=== PATIENT | male | born 1985 | race Caucasian/White ===

== ENCOUNTER → 2020-06-20 | Outpatient (CLI) | payer BC, SELFPAY ==
[2020-06-20 13:42] VITALS: BMI 26.7
== END | disposition home or self-care (01) ==
PROVIDERS: Referring Provider Physician Assistant Surgical; Visit Provider Physician Assistant Surgical
DX: U07.1 COVID-19 (principal)
CPT/HCPCS: 87635; U0003

== ENCOUNTER → 2022-10-11 | Outpatient (CLI) | payer BC, SELFPAY ==
[2022-10-11 10:10] LABS: ALB/GLOB Ratio 1.2 RATIO (0.9-2.4); AST(SGOT) 26 U/L (15-37); Alanine Aminotransfer ALT/SGPT 43 U/L (16-61); Alkaline Phosphatase 53 U/L (45-117); Anion Gap 5 (5-15); BUN 12 mg/dL (7-18); BUN/Creat Ratio 11.2 RATIO (10-20); Calcium,Total 8.9 mg/dL (8.5-10.1); Chloride 105 mmol/L (98-107); Cholesterol 135 mg/dL (200); Creatinine, Serum 1.07 mg/dL (0.70-1.30); EST Glomerular Filtration Rate 82 mL/min (>60); Est Glom Filt Rate - Afr Amer 100 mL/min (>60); Globulin 3.3 g/dL (2.2-4.2); Glucose 92 mg/dL (74-106); High Density Lipoprotein 41 mg/dL; Potassium 3.7 mmol/L (3.5-5.1); Protein, Total 7.3 g/dL (6.4-8.2); Sodium Level 140 mmol/L (136-145); Triglycerides 99 mg/dL; Very Low Density Lipoprotein 20 mg/dL (5-40)
[2022-10-11 10:27] LABS: Hemoglobin A1c 5.2 % (3.8-5.6)
== END | disposition home or self-care (01) ==
LOC: MTLAB 07:02
PROVIDERS: PCP Nurse Practitioner Family; Referring Provider Nurse Practitioner Family; Visit Provider Nurse Practitioner Family
DX: Z00.00 Encounter for general adult medical examination without abnormal findings (principal); Z13.1 Encounter for screening for diabetes mellitus; Z13.6 Encounter for screening for cardiovascular disorders
CPT/HCPCS: 36415; 80053; 80061; 83036

== ENCOUNTER → 2023-06-19 | Outpatient (CLI) | payer BC, SELFPAY ==
--- NOTE | 2023-06-19 08:55 | RAD_ITS ---
STUDY: X-RAY CHEST REASON FOR EXAM: Male, 38 years old. Cough. TECHNIQUE: Frontal and lateral views of the chest. COMPARISON: None. FINDINGS: Mild hyperinflation. There is no demonstrated pleural abnormality. Normal size heart. Normal mediastinum and jonathon. Normal visualized pulmonary arteries. Normal visualized aortic arch and descending thoracic aorta. Normal visualized thoracic spine. Normal visualized ribs, clavicles, and shoulders. No abnormality of the visualized soft tissue structures of the upper abdomen. RAD/Chest PA and Lateral IMPRESSION: Mild hyperinflation with no acute or active cardiopulmonary disease Electronically Signed: Iker Fierro MD at 9:28 EST ,
[2023-06-19 09:56] LABS: Hematocrit 44.6 % (40-54); Hemoglobin 14.1 g/dL (13.0-16.5); Mean Corp Hgb Conc 31.6 g/dL (32-36); Mean Corpuscular Hgb 25.9 pg (27.0-32.0); Mean Corpuscular Volume 81.8 fL (80-94); Mean Platelet Vol. 10.5 fl (6.2-12.0); Platelet Count 250 K/mm3 (150-450); RBC Distribution Width CV 13.1 % (11.6-14.6); RBC Distribution Width SD 38.7 fl (35.1-43.9); Red Blood Count 5.45 M/mm3 (4.6-6.2); White Blood Count 8.8 K/mm3 (4.4-11.0)
[2023-06-19 10:26] LABS: ALB/GLOB Ratio 1.2 RATIO (0.9-2.4); AST(SGOT) 18 U/L (15-37); Alanine Aminotransfer ALT/SGPT 31 U/L (16-61); Albumin, Serum 4.2 g/dL (3.2-5.0); Alkaline Phosphatase 59 U/L (45-117); Anion Gap 6 (5-15); BUN 12 mg/dL (7-18); BUN/Creat Ratio 9.8 RATIO (10-20); CRP < 2.90 mg/L (0.0-3.0); Calcium,Total 8.9 mg/dL (8.5-10.1); Chloride 106 mmol/L (98-107); Creatinine, Serum 1.23 mg/dL (0.70-1.30); EST Glomerular Filtration Rate 70 mL/min (>60); Est Glom Filt Rate - Afr Amer 85 mL/min (>60); Globulin 3.6 g/dL (2.2-4.2); Glucose 91 mg/dL (74-106); Potassium 3.5 mmol/L (3.5-5.1); Protein, Total 7.8 g/dL (6.4-8.2); Sodium Level 141 mmol/L (136-145)
== END | disposition home or self-care (01) ==
LOC: RAD 08:51
PROVIDERS: PCP Nurse Practitioner Family; Referring Provider Nurse Practitioner Family; Visit Provider Nurse Practitioner Family
DX: R06.09 Other forms of dyspnea (principal); J20.9 Acute bronchitis, unspecified
CPT/HCPCS: 36415; 71046; 80053; 85027; 86140

== ENCOUNTER 2025-03-08 12:37 | Emergency (ER) | payer OTHER, SELFPAY ==
[2025-03-08 12:38] VITALS: BP 150/89; PULSE 72; RESP 16; TEMP 36.6; O2SAT 100; BMI 28.7
--- OUTSIDE RECORDS SUMMARY | 2025-03-08 13:07 | XMS RPT_ITS | CCD ---
Author Organization [facility] Care Team Providers Care Dispensary Technician Name Role Phone Cristopher Larose CNP Primary Care Provider Lachelle PRODUCTION HONING MACHINE OPERATOR, Cristopher Mcadams Primary Care Unav ailable Lachelle PRODUCTION HONING MACHINE OPERATOR, Cristopher Mcadams Referring Unav ailable Chilton PRODUCTION HONING MACHINE OPERATOR, Cristopher Mcadams Attending Unav ailable [place] PRODUCTION HONING MACHINE OPERATOR, Cristopher Mcadams Referring Unav ailable [place] PRODUCTION HONING MACHINE OPERATOR, Cristopher Mcadams Attending Unav ailable Lachelle PRODUCTION HONING MACHINE OPERATOR, Cristopher Mcadams Primary Care Unav ailable Cristopher Larose CNP Primary Care Provider 1( [phone] CRISTOPHER LAROSE Primary Care Unavailable CRISTOPHER LAROSE Primary Care Unavailable CRISTOPHER LAROSE Primary Care Unavailable CRISTOPHER LAROSE Primary Care Unavailable Allergies Allergy Classification Reported Allergen(s) Allergy Type Date of Onset Reaction(s) Facility (8 sources) Amoxicillin; Translations: [AMOXICILLIN] Drug Allergy 03-08-20 [facility] Work Phone: (8 sources) Amoxicillin / Clavulanate; Translations: [AMOXICILLIN-POT CLAVULANATE] Drug Allergy 03-08-20 [facility] Work Phone: (10 sources) Cefaclor; Translations: [CEFACLOR] Drug Allergy 03-08-20 [facility] Work Phone: (3 sources) Penicillins; Translations: [PENICILLINS] Propensity to adverse reactions 03-08-20 [facility] Work Phone: (3 sources) septrum [Other] Propensity to adverse reactions 03-08-20 [facility] Work Phone: (5 sources) Penicillins Propensity to adverse reactions 03-08-20 06 [facility] Work Phone: (3 sources) Amoxicillin; Translations: [amoxicillin trihydrate] Drug Allergy 06-20-20 [facility] (2 sources) Clarithromycin Drug Allergy 06-20-20 [facility] (2 sources) Penicillins Allergy to substance 06-20-20 [facility] (2 sources) Sulfamethoxazole Drug Allergy 06-20-20 [facility] (2 sources) Trimethoprim Drug Allergy 06-20-20 [facility] (3 sources) potassium clavulanate; Translations: [potassium clavulanate] Allergy to substance 06-20-20 [facility] (1 source) Cefaclor Drug Allergy 06-20-20 [facility] (1 source) Clarithromycin Drug Allergy 06-20-20 [facility] (1 source) Penicillins Drug allergy (disorder) 06-20-20 [facility] (1 source) Sulfamethoxazole Drug Allergy 06-20-20 [facility] (1 source) Trimethoprim Drug Allergy 06-20-20 [facility] (5 sources) Adult Allergy; Translations: [ADULT ALLERGY] Propensity to adverse reactions to drug 11-29-19 Other: See Comments [facility] (1 source) OTHER; Translations: [OTHER] Propensity to adverse reactions (disorder) 03-08-20 [facility] Medications Current Medications Medication Drug Class(es) Dates Sig (Normalized) Sig (Original) Kril-Nkt-Bot-Supriya-Ps yl-Kelp-Pec (2 sources) Start: 04-20-2016 take 2000 mg by mouth once daily Azrs-Zim-Jqc-Supriya-P zsd-Raqp-Rwf Active 2000 MG PO DAILY April 19, 2016 11:00pm Start: 04-20-2016 take 2000 mg by mout h once daily Cboh-Qoq-Opu-Uag-Mzxh-Jrmj-Pec Active 20 00 MG PO DAILY April 20, 2016 12:00am cephalexin 500 mg oral capsule (2 sources) Cephalosporin Antibacterial Start: 11-29-2023 End: 12-09-2023 take 1 capsule by mouth twice daily cephALEXin (KEFLEX) 500 mg capsule Take 1 capsule by mouth two times a day for 10 days. 20 capsule 0 11/29/2023 12/09/2023 Active Start: 09-16-2022 End: 09-16-2022 take 1 capsule by mouth twice daily cephALEXin (KEFLEX) 500 mg capsule Take 1 capsule by mouth twice daily for 7 days. 14 capsule 0 09/16/2022 09/16/2022 Discontinued (Changing Therapy/Dosage Form) Comment on above: Take 1 capsule by [facility] twice daily for 7 days. doxycycline monohydrate 100 mg oral tablet (1 source) Tetracycline-class Drug Start: 07-13-20 End: 07-20-20 take 1 tablet by mouth twice daily doxycycline monohydrate 100 mg tablet Take 1 tablet by mouth twice daily for 7 days. 14 tablet 0 07/13/2022 07/20/2022 Active Comment on above: Take 1 tablet by [facility] twice daily for 7 days. fexofenadine (1 source) Histamine-1 Receptor Antagonist FEXOFENADINE 60 MG CAP Active oseltamivir 75 mg oral capsule (1 source) Neuraminidase Inhibitor Start: 08-14-19 End: 08-19-19 take 1 capsule by mouth twice daily oseltamivir (TAMIFLU) 75 mg capsule Indications: Influenza A Take 1 capsule by mouth two times a day for 5 days. 10 capsule 08/14/2024 08/19/2024 Active predniSONE 20 mg oral tablet (1 source) Start: 07-13-20 End: 07-18-20 take 2 tablets by mouth once daily predniSONE (DELTASONE) 20 mg tablet Take 2 tablets by mouth once daily for 5 days. 10 tablet 0 07/13/2022 07/18/2022 Active Comment on above: Take 2 tablets by [facility] once daily for 5 days. Completed/Discontinued Medications Medication Drug Class(es) Dates Sig (Normalized) Sig (Original) acetaminophen 325 mg / oxyCODONE hydrochloride 10 mg oral tablet (2 sources) Opioid Agonist Start: 04-20-2016 End: 06-20-2020 take 1 tablet by mouth every six hours as needed Oxycodone-Acetamin ophen Discontinued 1 TABLET PO EVERY 6 HOURS NEEDED April 19, 2016 11:00pm June 20, 2020 1:43pm [id number] 200 actuat albuterol 0.09 mg/actuat metered dose inhaler (6 sources) beta2-Adrenergic Agonist Start: 12-14-2018 End: 08-14-2024 take 2 puff(s) by inhalation every four hours as needed for wheezing albuterol HFA (PROVENTIL HFA, VENTOLIN HFA) 90 mcg/actuation inhaler Indications: Bronchitis Inhale 2 Puffs as instructed every 4 hours as needed for Wheezing/Shortness of Breath. 1 Inhaler 12/14/2018 08/14/2024 Discontinued Comment on above: Inhale 2 Puffs as in structed every 4 hours as needed for Wheezing/Shortness of Breath. aspirin 81 mg chewable tablet (2 sources) Platelet Aggregation Inhibitor, Nonsteroidal Anti-inflammatory Drug Start: 04-20-2016 End: 06-20-2020 take 81 mg by mouth once daily Aspirin Discontinued 81 MG PO DAILY@0800 April 19, 2016 11:00pm June 20, 2020 1:43pm benzonatate 100 mg oral capsule (6 sources) Non-narcotic Antitussive Start: 12-06-2018 End: 08-14-2024 take 2 capsules by mouth three times daily as needed benzonatate (TESSALON PERLE) 100 mg capsule Indications: URI with cough and congestion Take 2 capsules by mouth three times daily as needed. 30 capsule 12/06/2018 08/14/2024 Discontinued Comment on above: Take 2 capsules by m outh three times daily as needed. docusate sodium 100 mg oral capsule (2 sources) Start: 04-26-2016 End: 06-20-2020 take 100 mg by mouth twice daily as needed Docusate Sodium Discontinued 100 MG PO TWICE DAILY NEEDED April 25, 2016 11:00pm June 20, 2020 1:43pm loratadine 10 mg oral tablet (2 sources) Start: 04-20-2016 End: 06-20-2020 take 10 mg by mouth once daily Loratadine Discontinued 10 MG PO DAILY April 19, 2016 11:00pm June 20, 2020 1:43pm mupirocin 0.02 mg/mg topical ointment (7 sources) RNA Synthetase Inhibitor Antibacterial Start: 02-27-2019 End: 08-14-2024 mupirocin (BACTROBAN) 2 % ointment Apply 1 application to affected area three times daily. 30 g 02/27/2019 08/14/2024 Discontinued Comment on above: Apply 1 application to affected area three times daily. Apply 1 application to affected area three times daily for 10 days. abuse-deterrent 12 hr oxyCODONE hydrochloride 10 mg extended release oral tablet (6 sources) Opioid Agonist Start: 04-28-2016 End: 06-20-2020 take 10 mg by mouth twice daily Oxycodone Discontinued 10 MG PO TWICE A DAY April 27, 2016 11:00pm June 20, 2020 1:43pm Start: 04-28-2016 End: 04-28-2016 take 1 tablet by mouth every twelve hours Oxycodone (Oxycontin) 10 MG tablet Discontinued 10 MG PO Q12H April 27, 2016 11:00pm April 28, 2016 7:34am Start: 04-26-2016 End: 06-20-2020 take 10 mg by mouth every four hours as needed Oxycodone Discontinued 10 MG PO EVERY 4 HOURS NEEDED April 25, 2016 11:00pm June 20, 2020 1:43pm promethazine hydrochloride 25 mg oral tablet (2 sources) Phenothiazine Start: 04-26-2016 End: 06-20-2020 take 25 mg by mouth every four hours as needed Promethazine Discontinued 25 MG PO EVERY 4 HOURS NEEDED April 25, 2016 11:00pm June 20, 2020 1:44pm RABEprazole sodium 20 mg delayed release oral tablet (6 sources) Proton Pump Inhibitor Start: 03-08-2006 End: 08-14-2024 ACIPHEX 20 MG TAB Take one(1) twice daily 0 03/08/2006 08/14/2024 Discontinued Comment on above: Take one(1) twice da nieves sodium chloride 0.111 meq/ml nasal spray (6 sources) Start: 12-06-2018 End: 08-14-2024 sodium chloride (SALINE MIST) 0.65 % nasal spray Indications: URI with cough and congestion Use 1 Colby in the nose as needed for Cold/Allergy Symptoms. 1 Bottle 12/06/2018 08/14/2024 Discontinued Comment on above: Use 1 Colby in the n ose as needed for Cold/Allergy Symptoms. tamsulosin hydrochloride 0.4 mg oral capsule (2 sources) alpha-Adrenergic Selene Start: 04-27-2016 End: 06-20-2020 take 0.4 mg by mouth once daily Tamsulosin Discontinued 0.4 MG PO DAILY April 26, 2016 11:00pm June 20, 2020 1:44pm Problems Active Problems Problem Classification Problem Date Documented Da te Episodic/Chronic Esophageal disorders (7 sources) Gastro-esophageal reflux disease with esophagitis; Translations: [Reflux esophagitis] 03-08-2006 Chronic Esophageal disorders (7 sources) Esophagitis; Translations: [Esophagitis, unspecified] 03-20-2006 Episodic Immunizations and screening for infectious disease (2 sources) Contact with and (suspected) exposure to other viral communicable diseases; Translations: [Contact with or suspected exposure to other viral communicable disease] 06-20-2020 Episodic Influenza (2 sources) Influenza due to Influenza A virus; Translations: [Influenza due to other identified influenza virus with other respiratory manifestations] 08-14-2024 Episodic Other lower respiratory disease (1 source) Other forms of dyspnea; Translations: [Other forms of dyspnea] Onset: 06-21-2023 Episodic Other skin disorders (1 source) Skin lesion; Translations: [Disorder of the skin and subcutaneous tissue, unspecified] Episodic Other upper respiratory disease (1 source) Chronic rhinitis; Translations: [Unspecified sinusitis (chronic)] Chronic Other upper respiratory infections (5 sources) Sore throat symptom; Translations: [Acute pharyngitis, unspecified] Episodic Viral infection (1 source) Viral disease; Translations: [Viral infection, unspecified] Episodic Past or Other Problems Problem Classification Problem Date Documented Da te Episodic/Chronic Unclassified (2 sources) hx of leg surgery 02-28-2022 Results Test Name Value Interpretation Reference Range Facility [facility] 10-16-2024 CNOV Office Visit ([facility]) IVAN MARTINO ([id number]) 1985 M Date Time Provider Department 10/16/24 7:30 AM ELIZABETH ELAM [facility] During your visit today, we recorded the following information about you: Temperature Pulse Respiration Blood pressure 97.1 degrees 90/minute 16/minute 128/74 Weight 96.9 kg Elizabeth Elam PA 10/16/2024 7:42 AM Signed [facility] Subjective Ivan Martino is a 39 year old male. Patient presents with: Nasal Congestion: drainage, cough and sore throat x 2 days HPI 39-year-old male presents for cough, congestion, sore throat x 2 days. Patient states that he has been sick for the past 2 days. He has a sore throat, nasal congestion and cough. No fevers. His son has strep currently and is also sick. Patient denies any vomiting or diarrhea. Still eating and drinking. Has not taken anything for symptoms. No other complaint PAST MEDICAL HISTORY Diagnosis Date Esophagitis, unspecified Reflux esophagitis PAST SURGICAL HISTORY Procedure Laterality Date EGD TRANSORAL BIOPSY SINGLE/MULTIPLE 03/20/06 PAST SURGICAL HISTORY OF 14yrs old wrapped stomach up to close at [facility] REPAIR NONUNION/MALUNION TIBIA W/O GRAFT Right Tibial plateau ORIF ALLERGIES Adult Allergy, Amoxicillin, Augmentin [Amoxicillin-Pot Clavulanate], Ceclor [Cefaclor], and Penicillins MEDICATIONS FEXOFENADINE 60 MG CAP FAMILY HISTORY Problem Relation Age of Onset other (reflux [Other]) Unknown Social History Tobacco Use Smoking status: Never Smokeless tobacco: Never Substance Use Topics Alcohol use: No Review of Systems Constitutional: Negative for chills and fever. HENT: Positive for congestion and sore throat. Respiratory: Positive for cough. Negative for shortness of breath. Gastrointestinal: Negative for diarrhea and vomiting. Objective BP 128/74 Pulse 90 Temp 36.2 ?C (97.1 ?F) Resp 16 Wt 96.9 kg (213 lb 10 oz) SpO2 97% Physical Exam Vitals and nursing note reviewed. Constitutional: General: He is not in acute distress. Appearance: Normal appearance. He is not toxic-appearing. HENT: Right Ear: Tympanic membrane and ear canal normal. Left Ear: Tympanic membrane and ear canal normal. Nose: Nose normal. Mouth/Throat: Mouth: Mucous membranes are moist. Pharynx: Uvula midline. Posterior oropharyngeal erythema present. Tonsils: No tonsillar exudate or tonsillar abscesses. 1+ on the right. 1+ on the left. Eyes: Conjunctiva/sclera: Conjunctivae normal. Cardiovascular: Rate and Rhythm: Normal rate and regular rhythm. Pulmonary: Effort: Pulmonary effort is normal. Breath sounds: Normal breath sounds. Skin: General: Skin is warm and dry. Neurological: Mental Status: He is alert. {ASSESSMENT/PLAN: 1. Sore throat - ICD9: 462, ICD10: J02.9 - suspect viral - Group A strep molecular testing negative - Discussed supportive care treatment with fluids, rest and analgesia. - The patient may also use warm salt water gargles, throat lozenges and/or OTC throat spray as needed. - STREP A MOLECULAR (POC) Diagnosis and treatment plan were discussed and questions were answered to the patient's satisfaction. Pt acknowledged understanding of concepts and follow up plan. Specific signs and symptoms that would indicate the need for higher level of care were discussed in detail warranting prompt ER evaluation. FAHAD Grace History and Record Review External record(s) reviewed: prior outpatient record. Findings from review of outpatient records: Prior [facility] visits Differential Diagnoses - Viral pharyngitis is more likely for the following reason(s): suggested by HANDP - Strep pharyngitis is less likely for the following reason(s): HANDP not suggestive and laboratory studies not suggestive Disposition The patient was discharged. OTC Medications were advised: Cough/cold medications as needed Procedures Allergies As of Date: 10/16/2024 Noted Allergy Reaction ADULT ALLERGY 11/29/2023 14 - Other: See Comments Comments: Septrum, intolerance AMOXICILLIN 03/08/2006 5 - Intolerance AUGMENTIN (AMOXICILLIN-POT CLAVUL*03/08/2006 5 - Intolerance CECLOR (CEFACLOR) 03/08/2006 5 - Intolerance PENICILLINS 03/08/2006 5 - Intolerance Date Reviewed: 10/16/2024 Reviewed by: Alicia Santos MA - Fully Assessed Reason for Visit: Nasal Congestion [235] Cmt: drainage, cough and sore throat x 2 days Primary Visit Diagnosis:Sore throat [J02.9] Order(s):STREP A MOLECULAR (POC) [[id number]] Order #: [id number] #:[id number] Prescriptions as of 10/16/2024 - FEXOFENADINE 60 MG CAP Problem List As Of Date 10/16/2024 Noted Resolved REFLUX ESOPHAGITIS [K21.00] ESOPHAGITIS, UNSPECIFIED [K20.90] Encounter Status:Closed by ELIZABETH ELAM on 10/16/24 Normal [facility] STREP A MOLECULAR (POC)on Procedural Control Valid [facility] Strep A (POCT) Negative Negative [facility] CNOVon 08-14-2024 CNOV Office Visit ([facility]) IVAN MARTINO ([id number]) 1985 M Date Time Provider Department 08/14/24 2:30 PM RASHID SPAER [facility] During your visit today, we recorded the following information about you: Temperature Pulse Respiration Blood pressure 100.9 degrees 124/minute 16/minute 122/80 Weight 98.8 kg Rashid Spear MD 08/14/2024 3:09 PM Signed Patient presents with: Cough: Cough, HUDSON and bodyaches x 1 day HPI: Feeling sick since this morning. Positive symptoms: Cough, fever, Body Aches, Headache, Sore throat from coug, Nasal Congestion, Rhinorrhea, Post nasal drainage, Negative symptoms: Vomiting, Diarrhea, OTC: none MEDICATIONS: No current outpatient medications on file. No current facility-administere d medications for this visit. ALLERGIES: ALLERGIES Allergen Reactions Adult Allergy Other: See Comments Septrum, intolerance Amoxicillin Intolerance Augmentin [Amoxicil* Intolerance Ceclor [Cefaclor] Intolerance Penicillins Intolerance VITALS: BP 122/80 Pulse (!) 124 Temp (!) 38.3 ?C (100.9 ?F) (Tympanic) Resp 16 Wt 98.8 kg (217 lb 13 oz) SpO2 95% PHYSICAL EXAM: GEN: mildly ill appearing HEENT: PERRL, EOMI, conjunctiva clear Ears: canals clear. TMs without erythema, bulge, or effusion Sinuses: non-tender frontal sinus, non-tender maxillary sinuses Throat: moist mucous membranes, mild erythema, no exudate Neck: supple, no thyromegaly, no lymphadenopathy HEART: regular rate, regular rhythm, no murmurs LUNGS: clear to auscultation, no wheezes or crackles, no increased WOB ASSESSMENT/PLAN: 1. Influenza A - ICD9: 487.1, ICD10: J10.1 (primary diagnosis) 2. Influenza-like illness - ICD9: 487.1, ICD10: J11.1 - INFLUENZA AANDB MOLECULAR (POC) - positive. Tamiflu Rx sent. - Discussed supportive care treatment with rest, cold medicine, and analgesia. - Discussed avoiding others until fever free for 24 hours. Limit contact an additional 5 days. Rashid Spear MD Allergies As of Date: 08/14/2024 Noted Allergy Reaction ADULT ALLERGY 11/29/2023 14 - Other: See Comments Comments: Septrum, intolerance AMOXICILLIN 03/08/2006 5 - Intolerance AUGMENTIN (AMOXICILLIN-POT CLAVUL*03/08/2006 5 - Intolerance CECLOR (CEFACLOR) 03/08/2006 5 - Intolerance PENICILLINS 03/08/2006 5 - Intolerance Date Reviewed: 08/14/2024 Reviewed by: Sindi Fitzpatrick LPN - Fully Assessed Reason for Visit: Cough [28] Cmt: Cough, HUDSON and bodyaches x 1 day Primary Visit Diagnosis:Influenza A [J10.1] Other Visit Diagnosis:Influenza- like illness [J11.1] Order(s):INFLUENZA AANDB MOLECULAR (POC) [[id number]] Order #: [id number]. #:[id number] oseltamivir (TAMIFLU) 75 mg capsuleTake 1 capsule by mouth two times a day for 5 days.Disp: 10 capsuleRfl: 0 Prescriptions as of 08/14/2024 - oseltamivir (TAMIFLU) 75 mg capsule Take 1 capsule by mouth two times a day for 5 days. Problem List As Of Date 08/14/2024 Noted Resolved REFLUX ESOPHAGITIS [K21.00] ESOPHAGITIS, UNSPECIFIED [K20.90] Prescriptions ordered this encounter Disp Refills Start End OSELTAMIVIR 75 MG CAPSULE 10 c* 0 08/14/2024 08/19/2024 Route: ORAL Sig: Take 1 capsule by mouth two times a day for 5 days. Medications Discontinued During This Encounter Prescriptions - ACIPHEX 20 MG TAB (Discontinued) Reported on 09/16/2022 - benzonatate (TESSALON PERLE) 100 mg capsule (Discontinued) Reported on 02/27/2019 - sodium chloride (SALINE MIST) 0.65 % nasal spray (Discontinued) Reported on 07/13/2022 - albuterol HFA (PROVENTIL HFA, VENTOLIN HFA) 90 mcg/actuation inhaler (Discontinued) Reported on 07/13/2022 - mupirocin (BACTROBAN) 2 % ointment (Discontinued) Reported on 12/23/2021 Level of Service: OFFICE/OUTPATIENT ESTABLISHED MOD [facility] 30 MIN [87882] Letter Text Encounter Status:Closed by RASHID SPEAR on 08/14/24 Normal [facility] INFLUENZA A&B MOLECULAR (POC )on 08-14-2024 Flu A (POCT) Positive Abnormal Negative [facility] Comment on above: Location: [facility], [place], [address] Interpretation and review of laboratory results Abnormal [facility] Procedural Control Valid [facility] Location: [facility], [place], [place], [address] [place] [address] POINT OF CARE [facility] CNOVon 04-25-2024 CNOV Office Visit ([facility]) IVAN MARTINO ([id number]) 1985 M Date Time Provider Department 04/25/24 3:00 PM LEONARD SEALS [facility] During your visit today, we recorded the following information about you: Temperature Pulse Respiration Blood pressure 97.6 degrees 98/minute 18/minute 148/77 Weight 95 kg Leonard Seals APRN.CNP 04/25/2024 3:17 PM Signed This note was created using NoteWriter. Subjective Ivan Martino is a 39 year old male. HPI Pt's kids both have strep. pt awoke this morning with nasal drainage and sore throat. He states he is leaving on a business trip and wanted to ensure that he does not also have strep. Review of Systems Constitutional: Negative for fever. HENT: Positive for sore throat. Respiratory: Negative for cough. Neurological: Positive for headaches. Objective BP 148/77 Pulse 98 Temp 36.4 ?C (97.6 ?F) Resp 18 Wt 95 kg (209 lb 7 oz) SpO2 99% Physical Exam Vitals and nursing note reviewed. Constitutional: General: He is not in acute distress. Appearance: Normal appearance. He is not ill-appearing. HENT: Head: Normocephalic. Mouth/Throat: Mouth: Mucous membranes are moist. Pharynx: No oropharyngeal exudate or posterior oropharyngeal erythema. Eyes: Conjunctiva/sclera: Conjunctivae normal. Cardiovascular: Rate and Rhythm: Normal rate and regular rhythm. Pulmonary: Effort: Pulmonary effort is normal. Breath sounds: Normal breath sounds. Musculoskeletal: General: Normal range of motion. Cervical back: Normal range of motion. Skin: General: Skin is warm and dry. Neurological: General: No focal deficit present. Mental Status: He is alert. Psychiatric: Mood and Affect: Mood normal. Behavior: Behavior normal. Assessment and Plan ASSESSMENT/PLAN: 1. Sore throat - ICD9: 462, ICD10: J02.9 - suspect viral - Rapid Strep negative in the office today - Discussed supportive care treatment with fluids, rest and analgesia. - The patient may also use warm salt water gargles, throat lozenges and/or OTC throat spray as needed. - Contagious dz precautions discussed- including considered contagious until on antibiotics for 24 hours - STREP A MOLECULAR (POC) Leonard Seals APRN.SINDHU Allergies As of Date: 04/25/2024 Noted Allergy Reaction ADULT ALLERGY 11/29/2023 14 - Other: See Comments Comments: Septrum, intolerance AMOXICILLIN 03/08/2006 5 - Intolerance AUGMENTIN (AMOXICILLIN-POT CLAVUL*03/08/2006 5 - Intolerance CECLOR (CEFACLOR) 03/08/2006 5 - Intolerance PENICILLINS 03/08/2006 5 - Intolerance Date Reviewed: 04/25/2024 Reviewed by: Moomaw, Leonard, TELECOMMUNICATION SYSTEMS DESIGNER.PIN TICKET MACHINE OPERATOR - Fully Assessed Reason for Visit: Sore Throat [200] Cmt: Headache x this am Primary Visit Diagnosis:Sore throat [J02.9] Order(s):STREP A MOLECULAR (POC) [[id number]] Order #: [id number] #:[id number] Prescriptions as of 04/25/2024 - mupirocin (BACTROBAN) 2 % ointment Apply 1 application to affected area three times daily. - albuterol HFA (PROVENTIL HFA, VENTOLIN HFA) 90 mcg/actuation inhaler Inhale 2 Puffs as instructed every 4 hours as needed for Wheezing/Shortness of Breath. - benzonatate (TESSALON PERLE) 100 mg capsule Take 2 capsules by mouth three times daily as needed. - sodium chloride (SALINE MIST) 0.65 % nasal spray Use 1 Colby in the nose as needed for Cold/Allergy Symptoms. - ACIPHEX 20 MG TAB Take one(1) twice daily Problem List As Of Date 04/25/2024 Noted Resolved REFLUX ESOPHAGITIS [K21.00] ESOPHAGITIS, UNSPECIFIED [K20.90] Encounter Status:Closed by LEONARD SEALS on 04/25/24 Normal [facility] STREP A MOLECULAR (POC)on Procedural Control Valid [facility] Strep A (POCT) Negative Negative [facility] CNOVon 11-29-2023 CNOV Office Visit ([facility]) IVAN MARTINO ([id number]) 1985 M Date Time Provider Department 11/29/23 2:30 PM ELIZABETH ELAM [facility] During your visit today, we recorded the following information about you: Temperature Pulse Respiration Blood pressure 98.4 degrees 113/minute 18/minute 156/80 Weight 91.6 kg Elizabeth Elam, PA 11/29/2023 2:46 PM Signed This note was created using MD.Voice. Subjective Ivan Martino is a 38 year old male. HPI 38-year-old male presents for sore throat, body aches starting last night. Patient states he started feeling achy last night. He had low-grade temp of 99 ?F. States that today he has a sore throat. No vomiting or diarrhea. No cough or congestion. 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 No known exposure to strep. No other complaint. , PAST MEDICAL HISTORY Diagnosis Date Esophagitis, unspecified Reflux esophagitis PAST SURGICAL HISTORY Procedure Laterality Date EGD TRANSORAL BIOPSY SINGLE/MULTIPLE 03/20/06 PAST SURGICAL HISTORY OF 14yrs old wrapped stomach up to close at [facility] REPAIR NONUNION/MALUNION TIBIA W/O GRAFT Right Tibial plateau ORIF ALLERGIES Adult Allergy, Amoxicillin, Augmentin [Amoxicillin-Pot Clavulanate], Ceclor [Cefaclor], and Penicillins MEDICATIONS cephALEXin (KEFLEX) 500 mg capsule Take 1 capsule by mouth two times a day for 10 days. mupirocin (BACTROBAN) 2 % ointment Apply 1 application to affected area three times daily. (Patient not taking: Reported on 12/23/2021 ) albuterol HFA (PROVENTIL HFA, VENTOLIN HFA) 90 mcg/actuation inhaler Inhale 2 Puffs as instructed every 4 hours as needed for Wheezing/Shortness of Breath. (Patient not taking: Reported on 07/13/2022) benzonatate (TESSALON PERLE) 100 mg capsule Take 2 capsules by mouth three times daily as needed. (Patient not taking: Reported on 02/27/2019 ) sodium chloride (SALINE MIST) 0.65 % nasal spray Use 1 Colby in the nose as needed for Cold/Allergy Symptoms. (Patient not taking: Reported on 07/13/2022) ACIPHEX 20 MG TAB Take one(1) twice daily (Patient not taking: Reported on 09/16/2022) FAMILY HISTORY Problem Relation Age of Onset other (reflux [Other]) Unknown Social History Tobacco Use Smoking status: Never Smokeless tobacco: Never Substance Use Topics Alcohol use: No Review of Systems Constitutional: Negative for chills and fever. HENT: Positive for sore throat. Negative for congestion. Respiratory: Negative for cough and shortness of breath. Gastrointestinal: Negative for diarrhea and vomiting. Musculoskeletal: Positive for myalgias. Objective BP 156/80 Pulse 113 Temp 36.9 ?C (98.4 ?F) Resp 18 Wt 91.6 kg (201 lb 15.1 oz) SpO2 98% Physical Exam Vitals and nursing note reviewed. Constitutional: General: He is not in acute distress. Appearance: Normal appearance. He is not toxic-appearing. HENT: Right Ear: Tympanic membrane and ear canal normal. Left Ear: Tympanic membrane and ear canal normal. Nose: Nose normal. Mouth/Throat: Mouth: Mucous membranes are moist. Pharynx: Uvula midline. Posterior oropharyngeal erythema present. Tonsils: No tonsillar exudate or tonsillar abscesses. 2+ on the right. 2+ on the left. Eyes: Conjunctiva/sclera: Conjunctivae normal. Cardiovascular: Rate and Rhythm: Normal rate and regular rhythm. Pulmonary: Effort: Pulmonary effort is normal. Breath sounds: Normal breath sounds. Skin: General: Skin is warm and dry. Neurological: Mental Status: He is alert. Assessment and Plan ASSESSMENT/PLAN: 1. Sore throat - ICD9: 462, ICD10: J02.9 (primary diagnosis) - suspect strep - Group A strep molecular testing positive - Keflex for 10 days. Tolerated in 2022. - Discussed supportive care treatment with fluids, rest and analgesia. - Contagious dz precautions discussed- including considered contagious until on antibiotics for 24 hours - STREP A MOLECULAR (POC) 2. Strep pharyngitis - ICD9: 034.0, ICD10: J02.0 - see above Diagnosis and treatment plan were discussed and questions were answered to the patient's satisfaction. Pt acknowledged understanding of concepts and follow up plan. Specific signs and symptoms that would indicate the need for higher level of care were discussed in detail warranting prompt ER evaluation. FAHAD Grace Allergies As of Date: 11/29/2023 Noted Allergy Reaction ADULT ALLERGY 11/29/2023 14 - Other: See Comments Comments: Septrum, intolerance AMOXICILLIN 03/08/2006 5 - Intolerance AUGMENTIN (AMOXICILLIN-POT CLAVUL*03/08/2006 5 - Intolerance CECLOR (CEFACLOR) 03/08/2006 5 - Intolerance PENICILLINS 03/08/2006 5 - Intolerance Date Reviewed: 11/29/2023 Reviewed by: Tiffany Garrett - Fully Assessed Reason for Visit: Sore Throat [200] Cmt: Bodyaches x3 days Primary Visit Diagnosis:Sore throat [J02 (more content not included)... Normal [facility] STREP A MOLECULAR (POC)on Interpretation and review of laboratory results Abnormal [facility] Procedural Control Valid [facility] Strep A (POCT) Positive Abnormal Negative [facility] Automated blood hematocrit ( percentage)Ordered By: Cristopher Larose on 06-19-2023 Hematocrit (Bld) [Volume fraction] 44.6 % Normal 40-54 [facility] Comment on above: Performed By: #### L 100.0500, L501.6710, L500.4050 #### [facility] [address] [place], [address] Basophil percentageOrdered B y: Cristopher Larose on 06-19-2023 Bilirubin [Mass/Vol] 0.30 mg/dL Normal 0.20-1.00 [facility] Comment on above: For patients on eltr ombopag therapy, use of Dimension Wallace TBIL is not recommended. Result Comment: For patients on eltrombopag therapy, use of Dimension Wallace TBIL is not recommended. Performed By: #### L 100.0500, L501.6710, L500.4050 #### [facility] [address] [place], [address] Chloride [Moles/Vol] 106 mmol/L Normal 98-107 [facility] Comment on above: Performed By: #### L 100.0500, L501.6710, L500.4050 #### [facility] [address] [place], [address] Glucose [Mass/Vol] 91 mg/dL Normal 74-106 [facility] Comment on above: Performed By: #### L 100.0500, L501.6710, L500.4050 #### [facility] [address] [place], [address] Potassium [Moles/Vol] 3.5 mmol/L Normal 3.5-5.1 [facility] Comment on above: Performed By: #### L 100.0500, L501.6710, L500.4050 #### [facility] [address] [place], [address] Sodium [Moles/Vol] 141 mmol/L Normal 136-145 [facility] Comment on above: Performed By: #### L 100.0500, L501.6710, L500.4050 #### [facility] [address] [place], [address] WBC (Bld) [#/Vol] 8.8 10*3/uL Normal 4.4-11.0 [facility] Comment on above: Performed By: #### L 100.0500, L501.6710, L500.4050 #### [facility] [address] [place], [address] Protein [Mass/Vol] 7.8 g/dL 6.4-8.2 [facility] Blood erythrocytes count (nu mber/volume)Ordered By: Cristopher Larose on 06-19-2023 RBC (Bld) [#/Vol] 5.45 10*6/uL Normal 4.6-6.2 [facility] Comment on above: Performed By: #### L 100.0500, L501.6710, L500.4050 #### [facility] [address] [place], [address] Blood hemoglobin measurement (mass/volume)Ordered By: Cristopher Larose on 06-19-2023 Hemoglobin (Bld) [Mass/Vol] 14.1 g/dL Normal 13.0-16.5 [facility] Comment on above: Performed By: #### L 100.0500, L501.6710, L500.4050 #### [facility] [address] [place], [address] Blood platelet mean volumeOr dered By: Cristopher Larose on 06-19-2023 Platelet mean volume (Bld) [Entitic vol] 10.5 fL Normal 6.2-12.0 [facility] Comment on above: Performed By: #### L 100.0500, L501.6710, L500.4050 #### [facility] [address] [place], [address] CBC-Complete Blood Cnt No Di ffOrdered By: Cristopher Larose on 06-19-2023 Erythrocyte distribution width (RBC) [Ratio] 13.1 % Normal 11.6-14.6 [facility] Comment on above: Performed By: #### L 100.0500, L501.6710, L500.4050 #### [facility] [address] [place], [address] MCH (RBC) [Entitic mass] 25.9 pg Low 27.0-32.0 [facility] Comment on above: Performed By: #### L 100.0500, L501.6710, L500.4050 #### [facility] [address] [place], [address] CBC-Complete Blood Cnt No Di ffon 06-19-2023 RDW SD 38.7 fl Normal 35.1-43.9 [facility] Comment on above: Performed By: #### L 100.0500, L501.6710, L500.4050 #### [facility] [address] [place], [address] CRPon 06-19-2023 C-REACTIVE PROT < 2.90 Normal 0.0-3.0 [facility] Comment on above: Result Comment: C-Re active Protein (CRP) provides useful information for the diagnosis, therapy and monitoring of inflammatory processes and associated diseases. For the evaluation of Relative Risk for Cardiovascular Disease, a High Sensitivity CRP (HSCRP) should be ordered. Performed By: #### L 100.0500, L501.6710, L500.4050 #### [facility] [address] 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 Cough. TECHNIQUE: Frontal and lateral views of the chest. COMPARISON: None. FINDINGS: Mild hyperinflation. There is no demonstrated pleural abnormality. Normal size heart. Normal mediastinum and jonathon. Normal visualized pulmonary arteries. Normal visualized aortic arch and descending thoracic aorta. Normal visualized thoracic spine. Normal visualized ribs, clavicles, and shoulders. No abnormality of the visualized soft tissue structures of the upper abdomen. RAD/Chest PA and Lateral IMPRESSION: Mild hyperinflation with no acute or active cardiopulmonary disease Electronically Signed: Iker Fierro MD at 9:28 EST , CC: PRODUCTION HONING MACHINE OPERATORBrendaC Cristopher Larose Day Guard: Signed Normal [facility] Comprehensive Metabolic Prof ilon 06-19-2023 ALK P 59 U/L Normal 45-117 [facility] Comment on above: Performed By: #### L 100.0500, L501.6710, L500.4050 #### [facility] [address] [place], [address] AST [Catalytic activity/Vol] 18 U/L Normal 15-37 [facility] Comment on above: Performed By: #### L 100.0500, L501.6710, L500.4050 #### [facility] [address] [place], [address] BUN/CRE 9.8 RATIO Low 10-20 [facility] Comment on above: Performed By: #### L 100.0500, L501.6710, L500.4050 #### [facility] [address] [place], [address] CA,Total 8.9 mg/dL Normal 8.5-10.1 [facility] Comment on above: Performed By: #### L 100.0500, L501.6710, L500.4050 #### [facility] [address] [place], [address] EST GFR - AA 85 mL/min Normal >60 [facility] Comment on above: Result Comment: Afri can Citizen [place] GFR Calc Performed By: #### L 100.0500, L501.6710, L500.4050 #### [facility] [address] [place], [address] GAP 6 Normal 5-15 [facility] Comment on above: Performed By: #### L 100.0500, L501.6710, L500.4050 #### [facility] [address] [place], [address] GFR/1.73 sq M.predicted among non-blacks MDRD (S/P/Bld) [Vol rate/Area] 70 mL/min/{1.73_m2} Normal >60 [facility] Comment on above: Result Comment: Non- GFR Calc Performed By: #### L 100.0500, L501.6710, L500.4050 #### [facility] [address] [place], [address] T PROT 7.8 g/dL Normal 6.4-8.2 [facility] Comment on above: Performed By: #### L 100.0500, L501.6710, L500.4050 #### [facility] [address] [place], [address] Comprehensive Metabolic Prof ilOrdered By: Cristopher Larose on 06-19-2023 ALT [Catalytic activity/Vol] 31 U/L Normal 16-61 [facility] Comment on above: Performed By: #### L 100.0500, L501.6710, L500.4050 #### [facility] [address] [place], [address] CO2 [Moles/Vol] 29.0 mmol/L Normal 21.0-32.0 [facility] Comment on above: Performed By: #### L 100.0500, L501.6710, L500.4050 #### [facility] [address] [place], [address] Globulin (S) [Mass/Vol] 3.6 g/dL Normal 2.2-4.2 [facility] Comment on above: Performed By: #### L 100.0500, L501.6710, L500.4050 #### [facility] [address] [place], [address] Determination of erythrocyte mean corpuscular volume (MCV)Ordered By: Cristopher Larose on 06-19-2023 MCV (RBC) [Entitic vol] 81.8 fL Normal 80-94 [facility] Comment on above: Performed By: #### L 100.0500, L501.6710, L500.4050 #### [facility] [address] [place], [place], [id number] Laboratory - Chemistry and C hemistry - challengeOrdered By: Cristopher Larose on 06-19-2023 ALP [Catalytic activity/Vol] 59 U/L 45-117 [facility] Urea nitrogen/Creatinine [Mass ratio] 9.8 mg/mg 10-20 [facility] - Hematology and Cell countsOrdered By: Cristopher Larose on 06-19-2023 Erythrocyte distribution width (RBC) [Entitic vol] 38.7 fL 35.1-43.9 [facility] MCHC [Mass/volume] by Automa sarwat countOrdered By: Cristopher Larose on 06-19-2023 MCHC (RBC) [Mass/Vol] 31.6 g/dL Low 32-36 [facility] Comment on above: Performed By: #### L 100.0500, L501.6710, L500.4050 #### [facility] [address] [place], [address] No Panel InformationOrdered By: Cristopher Larose on 06-19-2023 Estimated GFR (MDRD) Amer 85 mL/min >60 [facility] Comment on above: GFR Calc Estimated GFR (MDRD) Non-Af Amer 70 mL/min >60 [facility] Comment on above: Non- GFR Calc Platelets bldOrdered By: Joseph Larose on 06-19-2023 Platelets (Bld) [#/Vol] 250 10*3/uL Normal 150-450 [facility] Comment on above: Performed By: #### L 100.0500, L501.6710, L500.4050 #### [facility] [address] [place], [address] Serum or plasma C reactive p rotein measurement (mass/volume)Ordered By: Cristopher Larose on 06-19-2023 CRP [Mass/Vol] mg/L 0.0-3.0 [facility] Comment on above: C-Reactive Protein ( CRP) provides useful information for thediagnosis, therapy and monitoring of inflammatory processesand associated diseases. For the evaluation of Relative Riskfor Cardiovascular Disease, a High Sensitivity CRP (HSCRP)should be ordered. Serum or plasma albumin jose f urement (mass/volume)Ordered By: Cristopher Lachelle on 06-19-2023 Albumin [Mass/Vol] 4.2 g/dL Normal 3.2-5.0 [facility] Comment on above: Performed By: #### L 100.0500, L501.6710, L500.4050 #### [facility] [address] [place], [address] Serum or plasma albumin/glob ulin mass ratioOrdered By: Cristopher Larose on 06-19-2023 Albumin/Globulin [Mass ratio] 1.2 {ratio} Normal 0.9-2.4 [facility] Comment on above: Performed By: #### L 100.0500, L501.6710, L500.4050 #### [facility] [address] [facility] [address] Serum or plasma calcium jose f urement (mass/volume)Ordered By: Cristopher Larose on 06-19-2023 Calcium [Mass/Vol] 8.9 mg/dL 8.5-10.1 [facility] Serum or plasma creatinine m easurement (mass/volume)Ordered By: Cristopher Larose on 06-19-2023 Creatinine [Mass/Vol] 1.23 mg/dL Normal 0.70-1.30 [facility] Comment on above: The validity of the calculated GFR & GFRAA in patients over 70 years has not been determined. Clinical correlation is essential. Result Comment: The validity of the calculated GFR GFRAA in patients over 70 years has not been determined. Clinical correlation is essential. Performed By: #### L 100.0500, L501.6710, L500.4050 #### [facility] [address] [place], [address] Serum or plasma urea nitroge n measurement (mass/volume)Ordered By: Cristopher Larose on 06-19-2023 Urea nitrogen [Mass/Vol] 12 mg/dL Normal 7-18 [facility] Comment on above: Performed By: #### L 100.0500, L501.6710, L500.4050 #### [facility] [address] [place], [place], [id number] Thin prep Papanicolaou smear with manual screeningOrdered By: Cristopher Larose on 06-19-2023 Thin prep Papanicolaou smear with manual screening 18 U/L 15-37 [facility] Thin prep Papanicolaou smear with manual screening 6 5-15 [facility] Basophil percentageOrdered B y: Cristopher Garciapkins on 10-11-2022 Bilirubin [Mass/Vol] 0.40 mg/dL 0.20-1.00 [facility] Comment on above: For patients on eltr ombopag therapy, use of Dimension Wallace TBIL is not recommended. Chloride [Moles/Vol] 105 mmol/L 98-107 [facility] Cholesterol [Mass/Vol] 135 mg/dL <200 [facility] Comment on above: <200 mg/dL Desirable 200-240 mg/dL Borderline >240 mg/dL High Risk Glucose [Mass/Vol] 92 mg/dL 74-106 [facility] Potassium [Moles/Vol] 3.7 mmol/L 3.5-5.1 [facility] Protein [Mass/Vol] 7.3 g/dL 6.4-8.2 [facility] Sodium [Moles/Vol] 140 mmol/L 136-145 [facility] Triglyceride [Mass/Vol] 99 mg/dL <199 [facility] Comment on above: The drugs N-Acetylcy steine and Metamizole may falsely depress this assay.Serum Triglycerides Reference Interval Normal <150 mg/dL Borderline high 150 - 199 mg/dL High 200 - 499 mg/dL Very High > or = 500 mg/dL Comprehensive Metabolic Prof ilon 10-11-2022 Albumin [Mass/Vol] 4.0 g/dL Normal 3.2-5.0 [facility] Comment on above: Performed By: #### L 500.4100, L500.4050, L501.9985 #### [facility] [address] [place], [address] Albumin/Globulin [Mass ratio] 1.2 {ratio} Normal 0.9-2.4 [facility] Comment on above: Performed By: #### L 500.4100, L500.4050, L501.9985 #### [facility] [address] [place], [address] ALK P 53 U/L Normal 45-117 [facility] Comment on above: Performed By: #### L 500.4100, L500.4050, L501.9985 #### [facility] [address] [place], [address] ALT [Catalytic activity/Vol] 43 U/L Normal 16-61 [facility] Comment on above: Performed By: #### L 500.4100, L500.4050, L501.9985 #### [facility] [address] [place], [address] AST [Catalytic activity/Vol] 26 U/L Normal 15-37 [facility] Comment on above: Performed By: #### L 500.4100, L500.4050, L501.9985 #### [facility] [address] [place], [address] Bilirubin [Mass/Vol] 0.40 mg/dL Normal 0.20-1.00 [facility] Comment on above: Result Comment: For patients on eltrombopag therapy, use of Dimension Wallace TBIL is not recommended. Performed By: #### L 500.4100, L500.4050, L501.9985 #### [facility] [address] [place], [address] BUN/CRE 11.2 RATIO Normal 10-20 [facility] Comment on above: Performed By: #### L 500.4100, L500.4050, L501.9985 #### [facility] [address] [place], [address] CA,Total 8.9 mg/dL Normal 8.5-10.1 [facility] Comment on above: Performed By: #### L 500.4100, L500.4050, L501.9985 #### [facility] [address] [place], [address] Chloride [Moles/Vol] 105 mmol/L Normal 98-107 [facility] Comment on above: Performed By: #### L 500.4100, L500.4050, L501.9985 #### [facility] [address] [place], [address] CO2 [Moles/Vol] 30.0 mmol/L Normal 21.0-32.0 [facility] Comment on above: Performed By: #### L 500.4100, L500.4050, L501.9985 #### [facility] [address] [place], [address] Creatinine [Mass/Vol] 1.07 mg/dL Normal 0.70-1.30 [facility] Comment on above: Result Comment: The validity of the calculated GFR GFRAA in patients over 70 years has not been determined. Clinical correlation is essential. Performed By: #### L 500.4100, L500.4050, L501.9985 #### [facility] [address] [place], [address] EST GFR - AA 100 mL/min Normal >60 [facility] Comment on above: Result Comment: Afri can Citizen [place] GFR Calc Performed By: #### L 500.4100, L500.4050, L501.9985 #### [facility] [address] [place], [address] GAP 5 Normal 5-15 [facility] Comment on above: Performed By: #### L 500.4100, L500.4050, L501.9985 #### [facility] [address] [place], [address] GFR/1.73 sq M.predicted among non-blacks MDRD (S/P/Bld) [Vol rate/Area] 82 mL/min/{1.73_m2} Normal >60 [facility] Comment on above: Result Comment: Non- GFR Calc Performed By: #### L 500.4100, L500.4050, L501.9985 #### [facility] [address] [place], [address] Globulin (S) [Mass/Vol] 3.3 g/dL Normal 2.2-4.2 [facility] Comment on above: Performed By: #### L 500.4100, L500.4050, L501.9985 #### [facility] [address] [place], [address] Glucose [Mass/Vol] 92 mg/dL Normal 74-106 [facility] Comment on above: Performed By: #### L 500.4100, L500.4050, L501.9985 #### [facility] [address] [place], [address] Potassium [Moles/Vol] 3.7 mmol/L Normal 3.5-5.1 [facility] Comment on above: Performed By: #### L 500.4100, L500.4050, L501.9985 #### [facility] [address] [place], [address] Sodium [Moles/Vol] 140 mmol/L Normal 136-145 [facility] Comment on above: Performed By: #### L 500.4100, L500.4050, L501.9985 #### [facility] [address] [place], [address] T PROT 7.3 g/dL Normal 6.4-8.2 [facility] Comment on above: Performed By: #### L 500.4100, L500.4050, L501.9985 #### [facility] [address] [place], [address] Urea nitrogen [Mass/Vol] 12 mg/dL Normal 7-18 [facility] Comment on above: Performed By: #### L 500.4100, L500.4050, L501.9985 #### [facility] [address] [place], [address] Hemoglobin A1con 10-11-2022 HbA1c (Bld) [Mass fraction] 5.2 % Normal 3.8-5.6 [facility] Comment on above: Result Comment: Norm al < 5.7 % Prediabetic 5.7 - 6.4 % Diabetic >or= 6.5 % Please note range changes. Performed By: #### L 500.4100, L500.4050, L501.9985 #### [facility] [address] [place], [place], [address] Laboratory - Chemistry and C hemistry - challengeOrdered By: Cristopher Larose on 10-11-2022 ALP [Catalytic activity/Vol] 53 U/L 45-117 [facility] ALT [Catalytic activity/Vol] 43 U/L 16-61 [facility] CO2 [Moles/Vol] 30.0 mmol/L 21.0-32.0 [facility] Globulin (S) [Mass/Vol] 3.3 g/dL 2.2-4.2 [facility] Urea nitrogen/Creatinine [Mass ratio] 11.2 mg/mg 10-20 [facility] Lipid Profileon 10-11-2022 Cholesterol [Mass/Vol] 135 mg/dL Normal 200 [facility] Comment on above: Result Comment: <200 mg/dL Desirable 200-240 mg/dL Borderline >240 mg/dL High Risk Performed By: #### L 500.4100, L500.4050, L501.9985 #### [facility] [address] [place], [address] Cholesterol in HDL [Mass/Vol] 41 mg/dL Normal [facility] Comment on above: Result Comment: The drugs N-Acetylcysteine and Metamizole may falsely depress this assay. Reference Range HDL <40 mg/dL Low HDL Cholesterol HDL >or= 60 mg/dL High HDL Cholesterol Performed By: #### L 500.4100, L500.4050, L501.9985 #### [facility] [address] [place], [address] Cholesterol in LDL [Mass/Vol] 74 mg/dL Normal 0-130 [facility] Comment on above: Performed By: #### L 500.4100, L500.4050, L501.9985 #### [facility] [address] [place], [address] Cholesterol in VLDL [Mass/Vol] 20 mg/dL Normal 5-40 [facility] Comment on above: Performed By: #### L 500.4100, L500.4050, L501.9985 #### [facility] [address] [place], [address] Triglyceride [Mass/Vol] 99 mg/dL Normal [facility] Comment on above: Result Comment: The drugs N-Acetylcysteine and Metamizole may falsely depress this assay. Serum Triglycerides Reference Interval Normal <150 mg/dL Borderline high 150 - 199 mg/dL High 200 - 499 mg/dL Very High > or = 500 mg/dL Performed By: #### L 500.4100, L500.4050, L501.9985 #### [facility] [address] [place], [address] No Panel InformationOrdered By: Cristopher Larose on 10-11-2022 Estimated GFR (MDRD) Amer 100 mL/min >60 [facility] Comment on above: GFR Calc Estimated GFR (MDRD) Non-Af Amer 82 mL/min >60 [facility] Comment on above: Non- GFR Calc Serum or plasma albumin jose f urement (mass/volume)Ordered By: Cristopher Larose on 10-11-2022 Albumin [Mass/Vol] 4.0 g/dL 3.2-5.0 [facility] Serum or plasma albumin/glob ulin mass ratioOrdered By: Cristopher Larose on 10-11-2022 Albumin/Globulin [Mass ratio] 1.2 {ratio} 0.9-2.4 [facility] Serum or plasma calcium jose f urement (mass/volume)Ordered By: Cristopher Larose on 10-11-2022 Calcium [Mass/Vol] 8.9 mg/dL 8.5-10.1 [facility] Serum or plasma cholesterol in HDL measurement (mass/volume)Ordered By: Cristopher Laroes on 10-11-2022 Cholesterol in HDL [Mass/Vol] 41 mg/dL >40 [facility] Comment on above: The drugs N-Acetylcy steine and Metamizole may falsely depress this assay. Reference Range HDL <40 mg/dL Low HDL Cholesterol HDL >or= 60 mg/dL High HDL Cholesterol Serum or plasma cholesterol in VLDL measurement (mass/volume)Ordered By: Cristopher Larose on 10-11-2022 Cholesterol in VLDL [Mass/Vol] 20 mg/dL 5-40 [facility] Serum or plasma creatinine m easurement (mass/volume)Ordered By: Cristopher aLrose on 10-11-2022 Creatinine [Mass/Vol] 1.07 mg/dL 0.70-1.30 [facility] Comment on above: The validity of the calculated GFR & GFRAA in patients over 70 years has not been determined. Clinical correlation is essential. Serum or plasma low density lipoprotein (LDL) cholesterol measurement (mass/volume)Ordered By: Cristopher Larose on 10-11-2022 Cholesterol in LDL [Mass/Vol] 74 mg/dL 0-130 [facility] Serum or plasma urea nitroge n measurement (mass/volume)Ordered By: Cristopher Larose on 10-11-2022 Urea nitrogen [Mass/Vol] 12 mg/dL 7-18 [facility] Thin prep Papanicolaou smear with manual screeningOrdered By: Cristopher Larose on 10-11-2022 Thin prep Papanicolaou smear with manual screening 26 U/L 15-37 [facility] Thin prep Papanicolaou smear with manual screening 5 5-15 [facility] Whole blood hemoglobin A1c/t otal hemoglobin ratio (mass fraction)Ordered By: Cristopher Larose on 10-11-2022 HbA1c (Bld) [Mass fraction] 5.2 % 3.8-5.6 [facility] Comment on above: Normal < 5.7 % Predi abetic 5.7 - 6.4 % Diabetic >or= 6.5 % Please note range changes. STREP A MOLECULAR (POC)on Procedural Control Valid [facility] Strep A (POCT) Negative Negative [facility] CURon 09-04-2019 CUR . MICRO - Microbiology PROCEDURE: Urine Culture [*1] SOURCE: Urine, Clean Catch BODY SITE: COLLECTED DATE/TIME: 09/02/2019 12:00 EST RECEIVED DATE/TIME: 09/02/2019 20:00 EST START DATE/TIME: 09/02/2019 20:00 EST FREE TEXT SOURCE: FINAL REPORTS Final Report [] Verified Date/Time/Personnel: 09/04/2019 07:41 EST No growth at 48 hours. PRELIMINARY REPORTS Preliminary Report [] Verified Date/Time/Personnel: 09/03/2019 08:25 EST No growth to date Performing Locations *1: This test was performed at: [facility], [address] [place] [address], [facility] , [facility] ([place]) Comment on above: Performed By: #### C UR #### [place] [address] Vital Signs Date Time Vital Sign Value Performing Clinician Sampson smith 10-16-2024 07:28-0400 Body temperature 97.11 [degF] Elizabeth Abpologg PA Work Phone: [facility] 10-16-2024 07:28-0400 Body weight 96.9 kg Krislyn Aberegg PA Work Phone: [facility] 10-16-2024 07:28-0400 Diastolic blood pressure 74 mm[Hg] Krislyn Aberegg PA Work Phone: [facility] 10-16-2024 07:28-0400 Heart rate 90 /min Krislyn Abpologg PA Work Phone: [facility] 10-16-2024 07:28-0400 Respiratory rate 16 /min Elizabeth Sharpgg PA Work Phone: [facility] 10-16-2024 07:28-0400 SaO2% (BldA) [Mass fraction] 97 % Krislymichael Aberegg PA Work Phone: [facility] 10-16-2024 07:28-0400 Systolic blood pressure 128 mm[Hg] Krislymichael Hintoneregg PA Work Phone: [facility] 08-14-2024 14:38-0500 Body temperature 100.9 [degF] Rashid Spear MD Work Phone: [facility] 08-14-2024 14:38-0500 Body weight 98.8 kg Rashid Spear MD Work Phone: [facility] 08-14-2024 14:38-0500 Diastolic blood pressure 80 mm[Hg] Rashid Spear MD Work Phone: [facility] 08-14-2024 14:38-0500 Heart rate 124 /min Rashid Spear MD Work Phone: [facility] 08-14-2024 14:38-0500 Respiratory rate 16 /min Rashid Spear MD Work Phone: [facility] 08-14-2024 14:38-0500 SaO2% (BldA) [Mass fraction] 95 % Rashid Spear MD Work Phone: [facility] 08-14-2024 14:38-0500 Systolic blood pressure 122 mm[Hg] Rashid Spear MD Work Phone: [facility] 04-25-2024 15:01-0400 Body temperature 97.59 [degF] Leonard Seals APRN.PIN TICKET MACHINE OPERATOR Work Phone: [facility] 04-25-2024 15:01-0400 Body weight 95 kg Leonard Seals APRN.PIN TICKET MACHINE OPERATOR Work Phone: [facility] 04-25-2024 15:01-0400 Diastolic blood pressure 77 mm[Hg] Leonard Moomaw TELECOMMUNICATION SYSTEMS DESIGNER.PIN TICKET MACHINE OPERATOR Work Phone: [facility] 04-25-2024 15:01-0400 Heart rate 98 /min Leonard Moomaw TELECOMMUNICATION SYSTEMS DESIGNER.PIN TICKET MACHINE OPERATOR Work Phone: [facility] 04-25-2024 15:01-0400 Respiratory rate 18 /min Leonard Moomaw TELECOMMUNICATION SYSTEMS DESIGNER.PIN TICKET MACHINE OPERATOR Work Phone: [facility] 04-25-2024 15:01-0400 SaO2% (BldA) [Mass fraction] 99 % Leonard Moomaw TELECOMMUNICATION SYSTEMS DESIGNER.PIN TICKET MACHINE OPERATOR Work Phone: [facility] 04-25-2024 15:01-0400 Systolic blood pressure 148 mm[Hg] Leonard Moomaw TELECOMMUNICATION SYSTEMS DESIGNER.PIN TICKET MACHINE OPERATOR Work Phone: [facility] 11-29-2023 14:32-0400 Body temperature 98.4 [degF] Krislyn Aberegg PA Work Phone: [facility] 11-29-2023 14:32-0400 Body weight 91.6 kg Krislyn Aberegg PA Work Phone: [facility] 11-29-2023 14:32-0400 Diastolic blood pressure 80 mm[Hg] Krislyn Aberegg PA Work Phone: [facility] 11-29-2023 14:32-0400 Heart rate 113 /min Krislyn Aberegg PA Work Phone: [facility] 11-29-2023 14:32-0400 Respiratory rate 18 /min Krislyn Aberegg PA Work Phone: [facility] 11-29-2023 14:32-0400 SaO2% (BldA) [Mass fraction] 98 % Krislyn Aberegg PA Work Phone: [facility] 11-29-2023 14:32-0400 Systolic blood pressure 156 mm[Hg] Krislyn Aberegg PA Work Phone: [facility] 09-16-2022 10:02-0500 Body temperature 97.7 [degF] Yuli Kobe TELECOMMUNICATION SYSTEMS DESIGNER.PIN TICKET MACHINE OPERATOR Work Phone: [facility] 09-16-2022 10:02-0500 Body weight 93.53 kg Yuli Bullock TELECOMMUNICATION SYSTEMS DESIGNER.PIN TICKET MACHINE OPERATOR Work Phone: [facility] 09-16-2022 10:02-0500 Diastolic blood pressure 80 mm[Hg] Yuli Kobe TELECOMMUNICATION SYSTEMS DESIGNER.PIN TICKET MACHINE OPERATOR Work Phone: [facility] 09-16-2022 10:02-0500 Heart rate 99 /min Yuli Kobe TELECOMMUNICATION SYSTEMS DESIGNER.PIN TICKET MACHINE OPERATOR Work Phone: [facility] 09-16-2022 10:02-0500 Respiratory rate 16 /min Yuli Kobe TELECOMMUNICATION SYSTEMS DESIGNER.PIN TICKET MACHINE OPERATOR Work Phone: [facility] 09-16-2022 10:02-0500 SaO2% (BldA) [Mass fraction] 99 % Yuli Kobe TELECOMMUNICATION SYSTEMS DESIGNER.PIN TICKET MACHINE OPERATOR Work Phone: [facility] 09-16-2022 10:02-0500 Systolic blood pressure 102 mm[Hg] Yuli Kobe TELECOMMUNICATION SYSTEMS DESIGNER.PIN TICKET MACHINE OPERATOR Work Phone: [facility] 07-13-2022 07:28-0500 Body temperature 97.59 [degF] Michelle Mendoza TELECOMMUNICATION SYSTEMS DESIGNER.PIN TICKET MACHINE OPERATOR Work Phone: [facility] 07-13-2022 07:28-0500 Body weight 92.08 kg Michelle Mendoza TELECOMMUNICATION SYSTEMS DESIGNER.PIN TICKET MACHINE OPERATOR Work Phone: [facility] 07-13-2022 07:28-0500 Diastolic blood pressure 72 mm[Hg] Michelle Mendoza TELECOMMUNICATION SYSTEMS DESIGNER.PIN TICKET MACHINE OPERATOR Work Phone: [facility] 07-13-2022 07:28-0500 Heart rate 86 /min Michelle Mendoza TELECOMMUNICATION SYSTEMS DESIGNER.PIN TICKET MACHINE OPERATOR Work Phone: [facility] 07-13-2022 07:28-0500 Respiratory rate 16 /min Michelle Mendoza TELECOMMUNICATION SYSTEMS DESIGNER.PIN TICKET MACHINE OPERATOR Work Phone: [facility] 07-13-2022 07:28-0500 SaO2% (BldA) [Mass fraction] 96 % Michelle Mendoza TELECOMMUNICATION SYSTEMS DESIGNER.PIN TICKET MACHINE OPERATOR Work Phone: [facility] 07-13-2022 07:28-0500 Systolic blood pressure 124 mm[Hg] Michelle Mendoza TELECOMMUNICATION SYSTEMS DESIGNER.PIN TICKET MACHINE OPERATOR Work Phone: [facility] 12-23-2021 07:12-0400 Body temperature 97.59 [degF] Hermelinda Praisler-Wood TELECOMMUNICATION SYSTEMS DESIGNER.PIN TICKET MACHINE OPERATOR Work Phone: [facility] 12-23-2021 07:12-0400 Body weight 92.35 kg Hermelinda Praisler-Wood TELECOMMUNICATION SYSTEMS DESIGNER.PIN TICKET MACHINE OPERATOR Work Phone: [facility] 12-23-2021 07:12-0400 Diastolic blood pressure 78 mm[Hg] Hermelinda Praisler-Wood TELECOMMUNICATION SYSTEMS DESIGNER.PIN TICKET MACHINE OPERATOR Work Phone: [facility] 12-23-2021 07:12-0400 Heart rate 77 /min Hermelinda Praisler-Wood TELECOMMUNICATION SYSTEMS DESIGNER.PIN TICKET MACHINE OPERATOR Work Phone: [facility] 12-23-2021 07:12-0400 Respiratory rate 16 /min Hermelinda Praisler-Wood TELECOMMUNICATION SYSTEMS DESIGNER.PIN TICKET MACHINE OPERATOR Work Phone: [facility] 12-23-2021 07:12-0400 SaO2% (BldA) [Mass fraction] 97 % Hermelinda Praisler-Wood TELECOMMUNICATION SYSTEMS DESIGNER.PIN TICKET MACHINE OPERATOR Work Phone: [facility] 12-23-2021 07:12-0400 Systolic blood pressure 132 mm[Hg] Hermelinda Praisler-Wood TELECOMMUNICATION SYSTEMS DESIGNER.PIN TICKET MACHINE OPERATOR Work Phone: [facility] Encounters Encounter Date Encounter Type Care Provider Facility Start: 10-16-2024 End: 10-16-2024 ambulatory CRISTOPHER LAROSE Facility:[facility] Start: 10-16-2024 End: 10-16-2024 Patient encounter procedure Elizabeth VÁSQUEZ Work Phone: [facility] Comment on above: Sore throat (Primary Dx) Start: 08-14-2024 End: 08-14-2024 ambulatory CRISTOPHER LAROSE Facility:[facility] Start: 08-14-2024 End: 08-14-2024 Office outpatient visit 25 minutes Rashid Spear MD Work Phone: [facility] Comment on above: Influenza A (Primary Dx); Influenza-like illness Start: 04-25-2024 End: 04-25-2024 ambulatory CRISTOPHER PEREIRAKINS Facility:[facility] Start: 04-25-2024 End: 04-25-2024 Patient encounter procedure Leonard Seals APRN.PIN TICKET MACHINE OPERATOR Work Phone: [facility] Comment on above: Sore throat (Primary Dx) Start: 11-29-2023 End: 11-29-2023 ambulatory CRISTOPHER Prather LACHELLE Facility:[facility] Start: 11-29-2023 End: 11-29-2023 Patient encounter procedure Elizabeth VÁSQUEZ Work Phone: [facility] Comment on above: Sore throat (Primary Dx); Strep pharyngitis Start: 06-19-2023 End: 06-19-2023 ambulatory Cristopher Larose [facility] Work Phone: Start: 06-19-2023 End: 06-19-2023 Patient encounter procedure [facility], [facility] Work Phone: Start: 10-14-2022 Encounter for genera l adult medical examination without abnormal findings Cristopher Larose [facility] Start: 10-11-2022 End: 10-11-2022 ambulatory Cristopher Larose [facility] Work Phone: Start: 10-11-2022 End: 10-11-2022 Patient encounter procedure [facility], [facility] Start: 09-16-2022 End: 09-16-2022 Patient encounter procedure Yuli Bullock APRN.PIN TICKET MACHINE OPERATOR Work Phone: [facility] Comment on above: Skin lesion (Primary Dx) Start: 07-13-2022 End: 07-13-2022 Patient encounter procedure Michelle Mendoza APRN.PIN TICKET MACHINE OPERATOR Work Phone: [facility] Comment on above: Rhinosinusitis (Prim yazmin Dx) Start: 12-23-2021 End: 12-23-2021 Patient encounter procedure Hermelinda Anders APRN.SINDHU Work Phone: [facility] Comment on above: Sore throat (Primary Dx); Viral illness Procedures Date Procedure Procedure Detail Performing Clinician Start: 10-16-2024 STREP A MOLECULAR (POC) Elizabeth VÁSQUEZ Work Phone: Start: 08-14-2024 INFLUENZA A&B MOLECU LAR (POC) Rashid Spear MD Work Phone: Start: 04-25-2024 STREP A MOLECULAR (POC) Elizabeth Elam PA Work Phone: Start: 11-29-2023 STREP A MOLECULAR (POC) Elizabeth Elam PA Work Phone: Start: 06-19-2023 Plain chest X-ray Start: 12-23-2021 STREP A MOLECULAR (POC) Hermelinda Anders APRN.PIN TICKET MACHINE OPERATOR Work Phone: Plan of Treatment Date Care Activity Detail Author Start: 03-31-2024 Covid-19 Vaccine ( season) Covid-19 Vaccine ( season) [facility] Start: 03-31-2024 Influenza vaccination C [facility] Start: 07-31-2023 Behavioral Health Screening Behavioral Health Screening [facility] Start: 03-31-2023 Covid-19 Vaccine ( season) Covid-19 Vaccine ( season) [facility] Start: 01-11-2023 Urine microalbumin profile DTaP,Tdap,Td Vaccine (8 - Td or Tdap) [facility] Start: 07-31-2022 DEPRESSION ASSESSMENT DEPRESSION ASS ESSMENT [facility] Start: 03-31-2022 Influenza vaccination C [facility] Start: 12-23-2021 End: 01-06-2022 Influenza virus A and B RNA and SARS-CoV-2 (COVID-19) N gene panel - Respiratory specimen by BEATA with probe detection COVID WITH FLUA+B, ROUTINE Microbiology Routine Viral illness Expected: 12/23/2021, Expires: 01/06/2022 [facility] Work Phone: Comment on above: Expected: 12/23/2021 , Expires: 01/06/2022 Start: 09-08-2021 COVID-19 VACCINE (4 - Booster for Moderna series) COVID-19 VACCINE (4 - Booster for Moderna series) [facility] Start: 07-31-2021 DEPRESSION ASSESSMENT DEPRESSION ASS ESSMENT [facility] Start: 2020 Lipid panel Lipid Screening [facility] Start: 2020 LIPID SCREEN LIPID SCREEN [facility] Start: 2004 Urine microalbumin profile DTAP,TDAP,TD (1 - Tdap) [facility] Start: 2003 Anxiety Screening Anxiety Screening [facility] Start: 2003 Depression Screening Depression Scre ening [facility] Start: 2003 HEPATITIS C SCREENING HEPATITIS C [facility] Start: 2003 Hepatitis C screening Hepatitis C [facility] Start: 2003 HIV SCREENING HIV SCREENING [facility] Start: 2003 HIV screening HIV Screening [facility] Start: 03-08-2000 Hepatitis B Vaccine (3 of 3 - 3-dose series) Hepatitis B Vaccine (3 of 3 - 3-dose series) [facility] Start: 1997 Adult depression screening assessment DEPRESSION SCREENING [facility] Start: 1985 HEPATITIS B (1 of 3 - 3-dose series) HEPATITIS B (1 of 3 - 3-dose series) [facility] Immunizations Immunization Date Immunization Notes Care Provider Brittney cilialvarez 04-28-2020 influenza, injectabl e, quadrivalent, preservative free Leonard Moomaw TELECOMMUNICATION SYSTEMS DESIGNER.PIN TICKET MACHINE OPERATOR Work Phone: [facility] 04-28-2020 influenza virus vacc ine, unspecified formulation Elizabeth VÁSQUEZ Work Phone: [facility] 04-29-2019 influenza, injectabl e, quadrivalent, preservative free Leonard Moomaw TELECOMMUNICATION SYSTEMS DESIGNER.PIN TICKET MACHINE OPERATOR Work Phone: [facility] 04-30-2018 influenza, injectabl e, quadrivalent, preservative free Leonard Moomaw TELECOMMUNICATION SYSTEMS DESIGNER.PIN TICKET MACHINE OPERATOR Work Phone: [facility] 04-20-2018 influenza, injectabl e, quadrivalent, preservative free Leonard Moomaw TELECOMMUNICATION SYSTEMS DESIGNER.PIN TICKET MACHINE OPERATOR Work Phone: [facility] 04-09-2018 hepatitis A vaccine, adult dosage Leonard Moomaw TELECOMMUNICATION SYSTEMS DESIGNER.PIN TICKET MACHINE OPERATOR Work Phone: [facility] 08-09-2017 hepatitis A vaccine, adult dosage Leonard Moomaw TELECOMMUNICATION SYSTEMS DESIGNER.PIN TICKET MACHINE OPERATOR Work Phone: [facility] 08-09-2017 typhoid capsular polysaccharide vaccine Leonard Moomaw TELECOMMUNICATION SYSTEMS DESIGNER.PIN TICKET MACHINE OPERATOR Work Phone: [facility] 04-21-2017 influenza, injectabl e, quadrivalent, preservative free Leonard Moomaw TELECOMMUNICATION SYSTEMS DESIGNER.PIN TICKET MACHINE OPERATOR Work Phone: [facility] 04-28-2016 influenza, injectabl e, quadrivalent, preservative free [facility] 04-28-2016 influenza, seasonal, injectable [facility] 04-28-2016 influenza, seasonal, injectable, preservative free Leonard Moomaw TELECOMMUNICATION SYSTEMS DESIGNER.PIN TICKET MACHINE OPERATOR Work Phone: [facility] 06-20-2015 influenza, seasonal, injectable, preservative free Leonard Moomaw TELECOMMUNICATION SYSTEMS DESIGNER.PIN TICKET MACHINE OPERATOR Work Phone: [facility] 07-14-2014 influenza, seasonal, injectable Leonard Moomaw TELECOMMUNICATION SYSTEMS DESIGNER.PIN TICKET MACHINE OPERATOR Work Phone: [facility] 01-11-2013 tetanus toxoid, redu jeri diphtheria toxoid, and acellular pertussis vaccine, adsorbed Leonard Moomaw TELECOMMUNICATION SYSTEMS DESIGNER.PIN TICKET MACHINE OPERATOR Work Phone: [facility] 12-24-2003 meningococcal polysaccharide vaccine (MPSV4) Leonard Moomaw TELECOMMUNICATION SYSTEMS DESIGNER.PIN TICKET MACHINE OPERATOR Work Phone: [facility] 01-12-2000 diphtheria and tetan us toxoids, adsorbed for pediatric use Leonard Moomaw TELECOMMUNICATION SYSTEMS DESIGNER.PIN TICKET MACHINE OPERATOR Work Phone: [facility] 01-12-2000 hepatitis B vaccine, pediatric or pediatric/adolescent dosage Leonard Moomaw TELECOMMUNICATION SYSTEMS DESIGNER.PIN TICKET MACHINE OPERATOR Work Phone: [facility] 01-28-1998 hepatitis B vaccine, pediatric or pediatric/adolescent dosage Leonard Moomaw TELECOMMUNICATION SYSTEMS DESIGNER.PIN TICKET MACHINE OPERATOR Work Phone: [facility] 12-26-1997 measles, mumps and rubella virus vaccine Leonard Moomaw TELECOMMUNICATION SYSTEMS DESIGNER.PIN TICKET MACHINE OPERATOR Work Phone: [facility] 01-28-1991 diphtheria, tetanus toxoids and acellular pertussis vaccine, unspecified formulation Leonard Moomaw TELECOMMUNICATION SYSTEMS DESIGNER.PIN TICKET MACHINE OPERATOR Work Phone: [facility] 01-28-1991 trivalent poliovirus vaccine, live, oral Leonard Moomaw TELECOMMUNICATION SYSTEMS DESIGNER.PIN TICKET MACHINE OPERATOR Work Phone: [facility] 04-30-1987 haemophilus influenz ae type b vaccine, conjugate unspecified formulation Leonard Moomaw TELECOMMUNICATION SYSTEMS DESIGNER.PIN TICKET MACHINE OPERATOR Work Phone: [facility] 10-22-1986 diphtheria, tetanus toxoids and pertussis vaccine Leonard Moomaw TELECOMMUNICATION SYSTEMS DESIGNER.PIN TICKET MACHINE OPERATOR Work Phone: [facility] 10-22-1986 trivalent poliovirus vaccine, live, oral Leonard Moomaw TELECOMMUNICATION SYSTEMS DESIGNER.PIN TICKET MACHINE OPERATOR Work Phone: [facility] 07-28-1986 measles, mumps and rubella virus vaccine Leonard Moomaw TELECOMMUNICATION SYSTEMS DESIGNER.PIN TICKET MACHINE OPERATOR Work Phone: [facility] 1985 diphtheria, tetanus toxoids and pertussis vaccine Leonard Moomaw TELECOMMUNICATION SYSTEMS DESIGNER.PIN TICKET MACHINE OPERATOR Work Phone: [facility] 1985 diphtheria, tetanus toxoids and pertussis vaccine Leonard Moomaw TELECOMMUNICATION SYSTEMS DESIGNER.PIN TICKET MACHINE OPERATOR Work Phone: [facility] 1985 trivalent poliovirus vaccine, live, oral Leonard Moomaw TELECOMMUNICATION SYSTEMS DESIGNER.PIN TICKET MACHINE OPERATOR Work Phone: [facility] 1985 diphtheria, tetanus toxoids and pertussis vaccine Leonard Moomaw TELECOMMUNICATION SYSTEMS DESIGNER.PIN TICKET MACHINE OPERATOR Work Phone: [facility] 1985 trivalent poliovirus vaccine, live, oral Leonard Moomaw TELECOMMUNICATION SYSTEMS DESIGNER.PIN TICKET MACHINE OPERATOR Work Phone: [facility] Payers Date Payer Category Payer Private Health Insurance [employer] PPO [id number] 2024 Unknown [id number] 2022 Self-pay [id number] 2021 Unknown CAM KATERINA ACCE SS PPO [id number] 2021-Present [phone] [address] [place] [address] PPO [id number] 2021 Unknown [id number] 2016 Unknown [id number] Unknown [id number] Unknown [id number] Social History Date Type Detail Facility Start: 07-13-2022 Tobacco smoking stat us TNIS Never smoked tobacco [facility] Start: 12-23-2021 End: 08-14-2024 Alcohol intake Current non-drinker of alcohol (finding) [facility] Start: 1985 Sex Assigned At Not on file [facility] Start: 12-13-2021 End: 12-23-2021 Exposure to SARS-CoV-2 (event) Not sure [facility] Work Phone: Start: 07-13-2022 Tobacco use and exposure Smokeless tobacco non-user [facility] Work Phone: Start: 06-20-2020 End: 06-20-2020 Tobacco smoking status NHIS Unknown if ever smoked [facility] Start: 1985 Sex Assigned At Male [facility] Start: 07-08-2020 End: 11-29-2023 History of Social function [facility] Start: 07-08-2020 End: 11-29-2023 Tobacco use panel [facility] National Score (1-100), lower number is lower risk Not on file [facility] Clinical Notes 12-23-2021 to 10-16-2024 Elizabeth Elam PA - 10/16/2024 7:33 AM EDTMRashid Morris MD - 08/14/2024 2:43 PM Leonard Roach APRN.PIN TICKET MACHINE OPERATOR - 04/25/2024 3:04 PM Elizabeth Cuello PA - 11/29/2023 2:43 PM EDT Note Date & Type Note Facility 10-16-2024 Note HNO ID: [id number] Author: ELIZABETH ELAM PA Service: ? Author Type: Physician Director Of Development Type: Progress Notes Filed: 10/16/2024 07:42 Note Text: [facility] Ivan Martino is a 39 year old male. Patient presents with: Nasal Congestion: drainage, cough and sore throat x 2 days HPI 39-year-old male presents for cough, congestion, sore throat x 2 days. Patient states that he has been sick for the past 2 days. He has a sore throat, nasal congestion and cough. No fevers. His son has strep currently and is also sick. Patient denies any vomiting or diarrhea. Still eating and drinking. Has not taken anything for symptoms. No other complaint PAST MEDICAL HISTORY Diagnosis Date Esophagitis, unspecified Reflux esophagitis PAST SURGICAL HISTORY Procedure Laterality Date EGD TRANSORAL BIOPSY SINGLE/MULTIPLE 03/20/06 PAST SURGICAL HISTORY OF 14yrs old wrapped stomach up to close at [facility] REPAIR NONUNION/MALUNION TIBIA W/O GRAFT Right Tibial plateau ORIF ALLERGIES Adult Allergy, Amoxicillin, Augmentin [Amoxicillin-Pot Clavulanate], Ceclor [Cefaclor], and Penicillins MEDICATIONS FEXOFENADINE 60 MG CAP FAMILY HISTORY Problem Relation Age of Onset other (reflux [Other]) Unknown Social History Tobacco Use Smoking status: Never Smokeless tobacco: Never Substance Use Topics Alcohol use: No Review of Systems Constitutional: Negative for chills and fever. HENT: Positive for congestion and sore throat. Respiratory: Positive for cough. Negative for shortness of breath. Gastrointestinal: Negative for diarrhea and vomiting. Objective BP 128/74 Pulse 90 Temp 36.2 ?C (97.1 ?F) Resp 16 Wt 96.9 kg (213 lb 10 oz) SpO2 97% Physical Exam Vitals and nursing note reviewed. Constitutional: General: He is not in acute distress. Appearance: Normal appearance. He is not toxic-appearing. HENT: Right Ear: Tympanic membrane and ear canal normal. Left Ear: Tympanic membrane and ear canal normal. Nose: Nose normal. Mouth/Throat: Mouth: Mucous membranes are moist. Pharynx: Uvula midline. Posterior oropharyngeal erythema present. Tonsils: No tonsillar exudate or tonsillar abscesses. 1+ on the right. 1+ on the left. Eyes: Conjunctiva/sclera: Conjunctivae normal. Cardiovascular: Rate and Rhythm: Normal rate and regular rhythm. Pulmonary: Effort: Pulmonary effort is normal. Breath sounds: Normal breath sounds. Skin: General: Skin is warm and dry. Neurological: Mental Status: He is alert. {ASSESSMENT/PLAN: 1. Sore throat - ICD9: 462, ICD10: J02.9 - suspect viral - Group A strep molecular testing negative - Discussed supportive care treatment with fluids, rest and analgesia. - The patient may also use warm salt water gargles, throat lozenges and/or OTC throat spray as needed. - STREP A MOLECULAR (POC) Diagnosis and treatment plan were discussed and questions were answered to the patient's satisfaction. Pt acknowledged understanding of concepts and follow up plan. Specific signs and symptoms that would indicate the need for higher level of care were discussed in detail warranting prompt ER evaluation. FAHAD Grace History and Record Review External record(s) reviewed: prior outpatient record. Findings from review of outpatient records: Prior [facility] visits Differential Diagnoses - Viral pharyngitis is more likely for the following reason(s): suggested by HANDP - Strep pharyngitis is less likely for the following reason(s): HANDP not suggestive and laboratory studies not suggestive Disposition The patient was discharged. OTC Medications were advised: Cough/cold medications as needed Procedures [facility] 10-16-2024 History of Presen t illness Narrative [facility] Subjective Ivan Martino is a 39 year old male. Patient presents with: Nasal Congestion: drainage, cough and sore throat x 2 days HPI 39-year-old male presents for cough, congestion, sore throat x 2 days. Patient states that he has been sick for the past 2 days. He has a sore throat, nasal congestion and cough. No fevers. His son has strep currently and is also sick. Patient denies any vomiting or diarrhea. Still eating and drinking. Has not taken anything for symptoms. No other complaint PAST MEDICAL HISTORY Diagnosis Date Esophagitis, unspecified Reflux esophagitis PAST SURGICAL HISTORY Procedure Laterality Date EGD TRANSORAL BIOPSY SINGLE/MULTIPLE 03/20/06 PAST SURGICAL HISTORY OF 14yrs old wrapped stomach up to close at [facility] REPAIR NONUNION/MALUNION TIBIA W/O GRAFT Right Tibial plateau ORIF ALLERGIES Adult Allergy, Amoxicillin, Augmentin [Amoxicillin-Pot Clavulanate], Ceclor [Cefaclor], and Penicillins MEDICATIONS FEXOFENADINE 60 MG CAP FAMILY HISTORY Problem Relation Age of Onset other (reflux [Other]) Unknown Social History Tobacco Use Smoking status: Never Smokeless tobacco: Never Substance Use Topics Alcohol use: No Review of Systems Constitutional: Negative for chills and fever. HENT: Positive for congestion and sore throat. Respiratory: Positive for cough. Negative for shortness of breath. Gastrointestinal: Negative for diarrhea and vomiting. Objective BP 128/74 Pulse 90 Temp 36.2 C (97.1 F) Resp 16 Wt 96.9 kg (213 lb 10 oz) SpO2 97% Physical Exam Vitals and nursing note reviewed. Constitutional: General: He is not in acute distress. Appearance: Normal appearance. He is not toxic-appearing. HENT: Right Ear: Tympanic membrane and ear canal normal. Left Ear: Tympanic membrane and ear canal normal. Nose: Nose normal. Mouth/Throat: Mouth: Mucous membranes are moist. Pharynx: Uvula midline. Posterior oropharyngeal erythema present. Tonsils: No tonsillar exudate or tonsillar abscesses. 1+ on the right. 1+ on the left. Eyes: Conjunctiva/sclera: Conjunctivae normal. Cardiovascular: Rate and Rhythm: Normal rate and regular rhythm. Pulmonary: Effort: Pulmonary effort is normal. Breath sounds: Normal breath sounds. Skin: General: Skin is warm and dry. Neurological: Mental Status: He is alert. {ASSESSMENT/PLAN: 1. Sore throat - ICD9: 462, ICD10: J02.9 - suspect viral - Group A strep molecular testing negative - Discussed supportive care treatment with fluids, rest and analgesia. - The patient may also use warm salt water gargles, throat lozenges and/or OTC throat spray as needed. - STREP A MOLECULAR (POC) Diagnosis and treatment plan were discussed and questions were answered to the patient's satisfaction. Pt acknowledged understanding of concepts and follow up plan. Specific signs and symptoms that would indicate the need for higher level of care were discussed in detail warranting prompt ER evaluation. FAHAD Grace History and Record Review External record(s) reviewed: prior outpatient record. Findings from review of outpatient records: Prior [facility] visits Differential Diagnoses - Viral pharyngitis is more likely for the following reason(s): suggested by H&P - Strep pharyngitis is less likely for the following reason(s): H&P not suggestive and laboratory studies not suggestive Disposition The patient was discharged. OTC Medications were advised: Cough/cold medications as needed Procedures documented in this encounter [facility] 08-14-2024 Note HNO ID: [id number] Author: RASHID SPEAR MD Service: ? Author Type: Physician Type: Progress Notes Filed: 08/14/2024 15:09 Note Text: Patient presents with: Cough: Cough, HUDSON and bodyaches x 1 day HPI: Feeling sick since this morning. Positive symptoms: Cough, fever, Body Aches, Headache, Sore throat from coug, Nasal Congestion, Rhinorrhea, Post nasal drainage, Negative symptoms: Vomiting, Diarrhea, OTC: none MEDICATIONS: No current outpatient medications on file. No current facility-administered medications for this visit. ALLERGIES: ALLERGIES Allergen Reactions Adult Allergy Other: See Comments Septrum, intolerance Amoxicillin Intolerance Augmentin [Amoxicil* Intolerance Ceclor [Cefaclor] Intolerance Penicillins Intolerance VITALS: BP 122/80 Pulse (!) 124 Temp (!) 38.3 ?C (100.9 ?F) (Tympanic) Resp 16 Wt 98.8 kg (217 lb 13 oz) SpO2 95% PHYSICAL EXAM: GEN: mildly ill appearing HEENT: PERRL, EOMI, conjunctiva clear Ears: canals clear. TMs without erythema, bulge, or effusion Sinuses: non-tender frontal sinus, non-tender maxillary sinuses Throat: moist mucous membranes, mild erythema, no exudate Neck: supple, no thyromegaly, no lymphadenopathy HEART: regular rate, regular rhythm, no murmurs LUNGS: clear to auscultation, no wheezes or crackles, no increased WOB ASSESSMENT/PLAN: 1. Influenza A - ICD9: 487.1, ICD10: J10.1 (primary diagnosis) 2. Influenza-like illness - ICD9: 487.1, ICD10: J11.1 - INFLUENZA AANDB MOLECULAR (POC) - positive. Tamiflu Rx sent. - Discussed supportive care treatment with rest, cold medicine, and analgesia. - Discussed avoiding others until fever free for 24 hours. Limit contact an additional 5 days. Rashid Spear MD [facility] 08-14-2024 History of Presen t illness Narrative Patient presents with: Cough: Cough, HUDSON and bodyaches x 1 day HPI: Feeling sick since this morning. Positive symptoms: Cough, fever, Body Aches, Headache, Sore throat from coug, Nasal Congestion, Rhinorrhea, Post nasal drainage, Negative symptoms: Vomiting, Diarrhea, OTC: none MEDICATIONS: No current outpatient medications on file. No current facility-administered medications for this visit. ALLERGIES: ALLERGIES Allergen Reactions Adult Allergy Other: See Comments Septrum, intolerance Amoxicillin Intolerance Augmentin [Amoxicil* Intolerance Ceclor [Cefaclor] Intolerance Penicillins Intolerance VITALS: BP 122/80 Pulse (!) 124 Temp (!) 38.3 C (100.9 F) (Tympanic) Resp 16 Wt 98.8 kg (217 lb 13 oz) SpO2 95% PHYSICAL EXAM: GEN: mildly ill appearing HEENT: PERRL, EOMI, conjunctiva clear Ears: canals clear. TMs without erythema, bulge, or effusion Sinuses: non-tender frontal sinus, non-tender maxillary sinuses Throat: moist mucous membranes, mild erythema, no exudate Neck: supple, no thyromegaly, no lymphadenopathy HEART: regular rate, regular rhythm, no murmurs LUNGS: clear to auscultation, no wheezes or crackles, no increased WOB ASSESSMENT/PLAN: 1. Influenza A - ICD9: 487.1, ICD10: J10.1 (primary diagnosis) 2. Influenza-like illness - ICD9: 487.1, ICD10: J11.1 - INFLUENZA A&B MOLECULAR (POC) - positive. Tamiflu Rx sent. - Discussed supportive care treatment with rest, cold medicine, and analgesia. - Discussed avoiding others until fever free for 24 hours. Limit contact an additional 5 days. Rashid Spear MD documented in this encounter [facility] 04-25-2024 Note HNO ID: [id number] Author: LEONARD SEALS APRN.PIN TICKET MACHINE OPERATOR Service: ? Author Type: Nurse Practitioner Type: Progress Notes Filed: 04/25/2024 15:17 Note Text: This note was created using MD.Voice. Subjective Ivan Martino is a 39 year old male. HPI Pt's kids both have strep. pt awoke this morning with nasal drainage and sore throat. He states he is leaving on a business trip and wanted to ensure that he does not also have strep. Review of Systems Constitutional: Negative for fever. HENT: Positive for sore throat. Respiratory: Negative for cough. Neurological: Positive for headaches. Objective BP 148/77 Pulse 98 Temp 36.4 ?C (97.6 ?F) Resp 18 Wt 95 kg (209 lb 7 oz) SpO2 99% Physical Exam Vitals and nursing note reviewed. Constitutional: General: He is not in acute distress. Appearance: Normal appearance. He is not ill-appearing. HENT: Head: Normocephalic. Mouth/Throat: Mouth: Mucous membranes are moist. Pharynx: No oropharyngeal exudate or posterior oropharyngeal erythema. Eyes: Conjunctiva/sclera: Conjunctivae normal. Cardiovascular: Rate and Rhythm: Normal rate and regular rhythm. Pulmonary: Effort: Pulmonary effort is normal. Breath sounds: Normal breath sounds. Musculoskeletal: General: Normal range of motion. Cervical back: Normal range of motion. Skin: General: Skin is warm and dry. Neurological: General: No focal deficit present. Mental Status: He is alert. Psychiatric: Mood and Affect: Mood normal. Behavior: Behavior normal. Assessment and Plan ASSESSMENT/PLAN: 1. Sore throat - ICD9: 462, ICD10: J02.9 - suspect viral - Rapid Strep negative in the office today - Discussed supportive care treatment with fluids, rest and analgesia. - The patient may also use warm salt water gargles, throat lozenges and/or OTC throat spray as needed. - Contagious dz precautions discussed- including considered contagious until on antibiotics for 24 hours - STREP A MOLECULAR (POC) Leonard Seals APRN.[facility] 04-25-2024 History of Presen t illness Narrative This note was created using MD.Voice. Subjective Ivan Martino is a 39 year old male. HPI Pt's kids both have strep. pt awoke this morning with nasal drainage and sore throat. He states he is leaving on a business trip and wanted to ensure that he does not also have strep. Review of Systems Constitutional: Negative for fever. HENT: Positive for sore throat. Respiratory: Negative for cough. Neurological: Positive for headaches. Objective BP 148/77 Pulse 98 Temp 36.4 C (97.6 F) Resp 18 Wt 95 kg (209 lb 7 oz) SpO2 99% Physical Exam Vitals and nursing note reviewed. Constitutional: General: He is not in acute distress. Appearance: Normal appearance. He is not ill-appearing. HENT: Head: Normocephalic. Mouth/Throat: Mouth: Mucous membranes are moist. Pharynx: No oropharyngeal exudate or posterior oropharyngeal erythema. Eyes: Conjunctiva/sclera: Conjunctivae normal. Cardiovascular: Rate and Rhythm: Normal rate and regular rhythm. Pulmonary: Effort: Pulmonary effort is normal. Breath sounds: Normal breath sounds. Musculoskeletal: General: Normal range of motion. Cervical back: Normal range of motion. Skin: General: Skin is warm and dry. Neurological: General: No focal deficit present. Mental Status: He is alert. Psychiatric: Mood and Affect: Mood normal. Behavior: Behavior normal. Assessment and Plan ASSESSMENT/PLAN: 1. Sore throat - ICD9: 462, ICD10: J02.9 - suspect viral - Rapid Strep negative in the office today - Discussed supportive care treatment with fluids, rest and analgesia. - The patient may also use warm salt water gargles, throat lozenges and/or OTC throat spray as needed. - Contagious dz precautions discussed- including considered contagious until on antibiotics for 24 hours - STREP A MOLECULAR (POC) Leonard Seals APRN.SINDHU documented in this encounter [facility] 11-29-2023 Note HNO ID: [id number] Author: ELIZABETH ELAM PA Service: ? Author Type: Physician Director Of Development Type: Progress Notes Filed: 11/29/2023 14:46 Note Text: This note was created using Curious Hatter. Subjective Ivan Martino is a 38 year old male. HPI 38-year-old male presents for sore throat, body aches starting last night. Patient states he started feeling achy last night. He had low-grade temp of 99 ?F. States that today he has a sore throat. No vomiting or diarrhea. No cough or congestion. 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 No known exposure to strep. No other complaint. , PAST MEDICAL HISTORY Diagnosis Date Esophagitis, unspecified Reflux esophagitis PAST SURGICAL HISTORY Procedure Laterality Date EGD TRANSORAL BIOPSY SINGLE/MULTIPLE 03/20/06 PAST SURGICAL HISTORY OF 14yrs old wrapped stomach up to close at [facility] REPAIR NONUNION/MALUNION TIBIA W/O GRAFT Right Tibial plateau ORIF ALLERGIES Adult Allergy, Amoxicillin, Augmentin [Amoxicillin-Pot Clavulanate], Ceclor [Cefaclor], and Penicillins MEDICATIONS cephALEXin (KEFLEX) 500 mg capsule Take 1 capsule by mouth two times a day for 10 days. mupirocin (BACTROBAN) 2 % ointment Apply 1 application to affected area three times daily. (Patient not taking: Reported on 12/23/2021 ) albuterol HFA (PROVENTIL HFA, VENTOLIN HFA) 90 mcg/actuation inhaler Inhale 2 Puffs as instructed every 4 hours as needed for Wheezing/Shortness of Breath. (Patient not taking: Reported on 07/13/2022) benzonatate (TESSALON PERLE) 100 mg capsule Take 2 capsules by mouth three times daily as needed. (Patient not taking: Reported on 02/27/2019 ) sodium chloride (SALINE MIST) 0.65 % nasal spray Use 1 Colby in the nose as needed for Cold/Allergy Symptoms. (Patient not taking: Reported on 07/13/2022) ACIPHEX 20 MG TAB Take one(1) twice daily (Patient not taking: Reported on 09/16/2022) FAMILY HISTORY Problem Relation Age of Onset other (reflux [Other]) Unknown Social History Tobacco Use Smoking status: Never Smokeless tobacco: Never Substance Use Topics Alcohol use: No Review of Systems Constitutional: Negative for chills and fever. HENT: Positive for sore throat. Negative for congestion. Respiratory: Negative for cough and shortness of breath. Gastrointestinal: Negative for diarrhea and vomiting. Musculoskeletal: Positive for myalgias. Objective BP 156/80 Pulse 113 Temp 36.9 ?C (98.4 ?F) Resp 18 Wt 91.6 kg (201 lb 15.1 oz) SpO2 98% Physical Exam Vitals and nursing note reviewed. Constitutional: General: He is not in acute distress. Appearance: Normal appearance. He is not toxic-appearing. HENT: Right Ear: Tympanic membrane and ear canal normal. Left Ear: Tympanic membrane and ear canal normal. Nose: Nose normal. Mouth/Throat: Mouth: Mucous membranes are moist. Pharynx: Uvula midline. Posterior oropharyngeal erythema present. Tonsils: No tonsillar exudate or tonsillar abscesses. 2+ on the right. 2+ on the left. Eyes: Conjunctiva/sclera: Conjunctivae normal. Cardiovascular: Rate and Rhythm: Normal rate and regular rhythm. Pulmonary: Effort: Pulmonary effort is normal. Breath sounds: Normal breath sounds. Skin: General: Skin is warm and dry. Neurological: Mental Status: He is alert. Assessment and Plan ASSESSMENT/PLAN: 1. Sore throat - ICD9: 462, ICD10: J02.9 (primary diagnosis) - suspect strep - Group A strep molecular testing positive - Keflex for 10 days. Tolerated in 2022. - Discussed supportive care treatment with fluids, rest and analgesia. - Contagious dz precautions discussed- including considered contagious until on antibiotics for 24 hours - STREP A MOLECULAR (POC) 2. Strep pharyngitis - ICD9: 034.0, ICD10: J02.0 - see above Diagnosis and treatment plan were discussed and questions were answered to the patient's satisfaction. Pt acknowledged understanding of concepts and follow up plan. Specific signs and symptoms that would indicate the need for higher level of care were discussed in detail warranting prompt ER evaluation. FAHAD Grace [facility] 11-29-2023 History of Presen t illness Narrative This note was created using MD.Voice. Subjective Ivan Martino is a 38 year old male. HPI 38-year-old male presents for sore throat, body aches starting last night. Patient states he started feeling achy last night. He had low-grade temp of 99 F. States that today he has a sore throat. No vomiting or diarrhea. No cough or congestion. 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 No known exposure to strep. No other complaint. , PAST MEDICAL HISTORY Diagnosis Date Esophagitis, unspecified Reflux esophagitis PAST SURGICAL HISTORY Procedure Laterality Date EGD TRANSORAL BIOPSY SINGLE/MULTIPLE 03/20/06 PAST SURGICAL HISTORY OF 14yrs old wrapped stomach up to close at [facility] REPAIR NONUNION/MALUNION TIBIA W/O GRAFT Right Tibial plateau ORIF ALLERGIES Adult Allergy, Amoxicillin, Augmentin [Amoxicillin-Pot Clavulanate], Ceclor [Cefaclor], and Penicillins MEDICATIONS cephALEXin (KEFLEX) 500 mg capsule Take 1 capsule by mouth two times a day for 10 days. mupirocin (BACTROBAN) 2 % ointment Apply 1 application to affected area three times daily. (Patient not taking: Reported on 12/23/2021 ) albuterol HFA (PROVENTIL HFA, VENTOLIN HFA) 90 mcg/actuation inhaler Inhale 2 Puffs as instructed every 4 hours as needed for Wheezing/Shortness of Breath. (Patient not taking: Reported on 07/13/2022) benzonatate (TESSALON PERLE) 100 mg capsule Take 2 capsules by mouth three times daily as needed. (Patient not taking: Reported on 02/27/2019 ) sodium chloride (SALINE MIST) 0.65 % nasal spray Use 1 Colby in the nose as needed for Cold/Allergy Symptoms. (Patient not taking: Reported on 07/13/2022) ACIPHEX 20 MG TAB Take one(1) twice daily (Patient not taking: Reported on 09/16/2022) FAMILY HISTORY Problem Relation Age of Onset other (reflux [Other]) Unknown Social History Tobacco Use Smoking status: Never Smokeless tobacco: Never Substance Use Topics Alcohol use: No Review of Systems Constitutional: Negative for chills and fever. HENT: Positive for sore throat. Negative for congestion. Respiratory: Negative for cough and shortness of breath. Gastrointestinal: Negative for diarrhea and vomiting. Musculoskeletal: Positive for myalgias. Objective BP 156/80 Pulse 113 Temp 36.9 C (98.4 F) Resp 18 Wt 91.6 kg (201 lb 15.1 oz) SpO2 98% Physical Exam Vitals and nursing note reviewed. Constitutional: General: He is not in acute distress. Appearance: Normal appearance. He is not toxic-appearing. HENT: Right Ear: Tympanic membrane and ear canal normal. Left Ear: Tympanic membrane and ear canal normal. Nose: Nose normal. Mouth/Throat: Mouth: Mucous membranes are moist. Pharynx: Uvula midline. Posterior oropharyngeal erythema present. Tonsils: No tonsillar exudate or tonsillar abscesses. 2+ on the right. 2+ on the left. Eyes: Conjunctiva/sclera: Conjunctivae normal. Cardiovascular: Rate and Rhythm: Normal rate and regular rhythm. Pulmonary: Effort: Pulmonary effort is normal. Breath sounds: Normal breath sounds. Skin: General: Skin is warm and dry. Neurological: Mental Status: He is alert. Assessment and Plan ASSESSMENT/PLAN: 1. Sore throat - ICD9: 462, ICD10: J02.9 (primary diagnosis) - suspect strep - Group A strep molecular testing positive - Keflex for 10 days. Tolerated in 2022. - Discussed supportive care treatment with fluids, rest and analgesia. - Contagious dz precautions discussed- including considered contagious until on antibiotics for 24 hours - STREP A MOLECULAR (POC) 2. Strep pharyngitis - ICD9: 034.0, ICD10: J02.0 - see above Diagnosis and treatment plan were discussed and questions were answered to the patient's satisfaction. Pt acknowledged understanding of concepts and follow up plan. Specific signs and symptoms that would indicate the need for higher level of care were discussed in detail warranting prompt ER evaluation. FAHAD Grace documented in this encounter [facility] 09-16-2022 History of Presen t illness Narrative Images from the original note were not included. Subjective The history is provided by the patient. No car hopper was used. HPI Ivan Martino is a 37 year old male who presents today for CC of sore on left antecubital area, where he had blood drawn on 08/31. He denies any redness/streaking sore to touch. BP 102/80 Pulse 99 Temp 36.5 C (97.7 F) (Tympanic) Resp 16 Wt 93.5 kg (206 lb 3.2 oz) SpO2 99% Social History Tobacco Use Smoking status: Never Smokeless tobacco: Never Substance Use Topics Alcohol use: No PAST MEDICAL HISTORY Diagnosis Date Esophagitis, unspecified Reflux esophagitis I have confirmed and edited as necessary, the [facility] Review of Systems Constitutional: Negative for chills and fever. Musculoskeletal: Negative for joint pain and myalgias. Skin: Negative for itching and rash. Sore on left antecubital All other systems reviewed and are negative. Objective Physical Exam Vitals and nursing note reviewed. Pulmonary: Effort: Pulmonary effort is normal. Skin: General: Skin is warm and dry. Findings: Erythema and rash present. Rash is nodular. Comments: Solid feeling nodule, no fluctuance, erythematous, sore to touch Neurological: Mental Status: He is alert and oriented to person, place, and time. Psychiatric: Mood and Affect: Affect normal. ASSESSMENT/PLAN: 1. Skin lesion - ICD9: 709.9, ICD10: L98.9 Appears to be inflammatory, not infected Topical mupirocin Follow up with PCP as needed Diagnosis and treatment plan were discussed and questions were answered to the patient's satisfaction. Pt acknowledged understanding of concepts and follow up plan. Specific signs and symptoms that would indicate the need for higher level of care were discussed in detail warranting prompt ER evaluation. Yuli Bullock APRN.CNP documented in this encounter [facility] 09-16-2022 Instructions Yuli Bullock APRN.CNP - 09/16/2022 10:09 AM EST Use mupirocin twice a day to site Wound Care - Keep the area clean and dry -Clean with soap and water . Apply mupirocin ointment 2 - 3 times a day. -Tylenol or Ibuprofen for discomfort -Observe area for signs of infection: redness, warmth, foul odor, drainage or increase in discomfort. If occurs see urgent care on [place]. Advise doxy and bactrim have sun sensitivity - going to [place] documented in this encounter [facility] 07-13-2022 History of Presen t illness Narrative CC: Patient presents with: Chest Congestion: nasal congestion, drainage and cough x 2 weeks increased x 3 days HPI: Ivan Martino is a 37 year old male who presents to the office with complaint of head congestion, cough, nonproductive, and sinus symptoms for 2 weeks. Symptoms are worsening Associated symptoms includes nasal congestion, facial pain/pressure, and ear pressure . Denies fever, nausea, vomiting , and diarrhea. Treatments tried include OTC cold medicine with minor relief of symptoms. Sick contacts: unknown. History of asthma, frequent episodes of bronchitis, chronic bronchitis, bronchiectasis or COPD: No Smoker: No Seasonal/environmental allergies: No The ROS is otherwise negative. The patient's pmh, medications, allergies, and past visits are reviewed. PHYSICAL EXAM: BP 124/72 Pulse 86 Temp 36.4 C (97.6 F) Resp 16 Wt 92.1 kg (203 lb) SpO2 96% General appearance: alert, cooperative, pleasant, in no acute distress Head: Normocephalic Eyes: EOM's intact, conjunctiva pink and moist, no icterus, sclera white, non-injected Ears: Right ear: External ear/canal- Normal, TM - clear with good landmarks. Left ear: External ear/canal- Normal, TM - clear with good landmarks Oropharynx:moist without lesions, No erythema, exudates or tonsillar hypertrophy. Heart: Negative. RRR without obvious murmur, gallop, or rubs. No ectopy. Lungs: clear to auscultation, without rales or wheeze, good air exchange PAST MEDICAL HISTORY Diagnosis Date Esophagitis, unspecified Reflux esophagitis PAST SURGICAL HISTORY Procedure Laterality Date EGD TRANSORAL BIOPSY SINGLE/MULTIPLE 03/20/06 PAST SURGICAL HISTORY OF 14yrs old wrapped stomach up to close at [facility] REPAIR NONUNION/MALUNION TIBIA W/O GRAFT Right Tibial plateau ORIF ALLERGIES Amoxicillin, Augmentin [Amoxicillin-Pot Clavulanate], Ceclor [Cefaclor], Penicillins, and Septrum [Other] MEDICATIONS ACIPHEX 20 MG TAB Take one(1) twice daily doxycycline monohydrate 100 mg tablet Take 1 tablet by mouth twice daily for 7 days. predniSONE (DELTASONE) 20 mg tablet Take 2 tablets by mouth once daily for 5 days. mupirocin (BACTROBAN) 2 % ointment Apply 1 application to affected area three times daily. (Patient not taking: Reported on 12/23/2021 ) albuterol HFA (PROVENTIL HFA, VENTOLIN HFA) 90 mcg/actuation inhaler Inhale 2 Puffs as instructed every 4 hours as needed for Wheezing/Shortness of Breath. (Patient not taking: Reported on 07/13/2022) benzonatate (TESSALON PERLE) 100 mg capsule Take 2 capsules by mouth three times daily as needed. (Patient not taking: Reported on 02/27/2019 ) sodium chloride (SALINE MIST) 0.65 % nasal spray Use 1 Colby in the nose as needed for Cold/Allergy Symptoms. (Patient not taking: Reported on 07/13/2022) FAMILY HISTORY Problem Relation Age of Onset other (reflux [Other]) Unknown Social History Tobacco Use Smoking status: Never Smokeless tobacco: Never Substance Use Topics Alcohol use: No ASSESSMENT/PLAN: 1. Rhinosinusitis - ICD9: 473.9, ICD10: J31.0, J32.9 Doxycycline bid for 7 days and prednisone daily for 5 days. Prescription instructions reviewed with patient as applicable. Potential red flag symptoms discussed with the patient. Reviewed appropriate action plan to take if red flag symptoms occur. Patient agreeable to treatment plan. Michelle Mendoza APRN.SINDHU documented in this encounter [facility] 12-23-2021 Instructions Hermelinda Anders APRN.CNP - 12/23/2021 7:26 AM EDT ASSESSMENT/PLAN: 1. Sore throat - ICD9: 462, ICD10: J02.9 (primary diagnosis) - suspect viral vs. allergic - Alere Strep Test NEGATIVE, no culture pending - Discussed supportive care treatment with fluids, rest and analgesia. - STREP A MOLECULAR (POC) 2. Viral illness - ICD9: 079.99, ICD10: B34.9 - COVID WITH FLUA+B, ROUTINE - Follow-up with your PCP in 3-5 days if symptoms have not improved or sooner if symptoms worsen - Discussed red flags and need for immediate medical evaluation if any occur. - Discussed supportive care treatment with fluids, rest and analgesia. - Discussed expected course of illness Hermelinda Anders APRN.CNP Treatment for Viral Upper Respiratory Tract Infections Your body will kill off the virus by itself. Additionally, you can prime your body's immune system. This may help you get better more quickly. 1. Drink lots of fluids - at least one gallon of non-caffeinated liquids per day 2. Make sure you are eating well 3. Get plenty of rest - at least 8 hours of sleep per night for adults and more for children We do not have any medications that kill off these viruses. Antibiotics are used to treat bacterial infections; however, they are not active against viral infections. There are some things that might help you feel better, though. 1. Vaporizers, humidifiers, hot showers, and hot fluids help open respiratory and sinus passages 2. Merrick Nasal Colby may offer relief of nasal and head congestion 3. Jcarlos's Vapor Rub may relieve congestion 4. Tylenol and Advil help control fevers and headaches 5. Salt water gargles help relieve sore throats 6. Chloraceptic spray or throat lozenges may also help relieve sore throat symptoms 7. Robitussin DM will help loosen up secretions and also provide relief from a cough Occasionally, viral infections turn into something more serious. You should see your doctor or return to the Urgent Care if: 1. You have fevers for longer than five days 2. You have fevers above 102 degrees 3. You are still sick after 10 days 4. You have shortness of breath or wheezing 5. After several days you are getting worse rather than better documented in this encounter [facility] 12-23-2021 History of Presen t illness Narrative Subjective HPI Ivan Martino is a 36 year old male who presents with one day of sore throat and headache. He has not had any recent sick contacts. He has not taken any medications for this at home. He has not had a fever. He is traveling soon with his 65 yr old father and his 90 yr old grandmother is living with him. He rates his sore throat pain 5-6/10. No associated nasal congestion or cough. Review of Systems Constitutional: Negative for chills and fever. HENT: Positive for sore throat. Negative for congestion. Respiratory: Negative for cough. Cardiovascular: Negative. Neurological: Positive for headaches. BP 132/78 Pulse 77 Temp 36.4 C (97.6 F) (Tympanic) Resp 16 Wt 92.4 kg (203 lb 9.6 oz) SpO2 97% PAST MEDICAL HISTORY Diagnosis Date Esophagitis, unspecified Reflux esophagitis PAST SURGICAL HISTORY Procedure Laterality Date EGD TRANSORAL BIOPSY SINGLE/MULTIPLE 03/20/06 PAST SURGICAL HISTORY OF 14yrs old wrapped stomach up to close at [facility] REPAIR NONUNION/MALUNION TIBIA W/O GRAFT Right Tibial plateau ORIF ALLERGIES Amoxicillin, Augmentin [Amoxicillin-Pot Clavulanate], Ceclor [Cefaclor], Penicillins, and Septrum [Other] MEDICATIONS sodium chloride (SALINE MIST) 0.65 % nasal spray Use 1 Colby in the nose as needed for Cold/Allergy Symptoms. mupirocin (BACTROBAN) 2 % ointment Apply 1 application to affected area three times daily. albuterol HFA (PROVENTIL HFA, VENTOLIN HFA) 90 mcg/actuation inhaler Inhale 2 Puffs as instructed every 4 hours as needed for Wheezing/Shortness of Breath. benzonatate (TESSALON PERLE) 100 mg capsule Take 2 capsules by mouth three times daily as needed. ACIPHEX 20 MG TAB Take one(1) twice daily FAMILY HISTORY Problem Relation Age of Onset other (reflux [Other]) Unknown Social History Tobacco Use Smoking status: Never Smoker Smokeless tobacco: Never Used Substance Use Topics Alcohol use: No Drug use: Not on file Objective Physical Exam Vitals and nursing note reviewed. Constitutional: Appearance: Normal appearance. HENT: Nose: No congestion. Mouth/Throat: Pharynx: Posterior oropharyngeal erythema present. No oropharyngeal exudate. Cardiovascular: Rate and Rhythm: Normal rate and regular rhythm. Heart sounds: Normal heart sounds. Pulmonary: Effort: Pulmonary effort is normal. No respiratory distress. Breath sounds: Normal breath sounds. No wheezing or rales. Skin: General: Skin is warm and dry. Findings: No erythema or rash. Neurological: Mental Status: He is alert. ASSESSMENT/PLAN: 1. Sore throat - ICD9: 462, ICD10: J02.9 (primary diagnosis) - suspect viral vs. allergic - Alere Strep Test NEGATIVE, no culture pending - Discussed supportive care treatment with fluids, rest and analgesia. - STREP A MOLECULAR (POC) 2. Viral illness - ICD9: 079.99, ICD10: B34.9 - COVID WITH FLUA+B, ROUTINE - Follow-up with your PCP in 3-5 days if symptoms have not improved or sooner if symptoms worsen - Discussed red flags and need for immediate medical evaluation if any occur. - Discussed supportive care treatment with fluids, rest and analgesia. - Discussed expected course of illness Hermelinda Anders APRN.SINDHU documented in this encounter [facility] Evaluation note Diagnosis Sore throat- Primary Acute pharyngitis Viral illness Unspecified viral infection, in conditions classified elsewhere and of unspecified site [facility] Diagnosis Rhinosinusitis- Primary Unspecified sinusitis (chronic) [facility] Diagnosis Skin lesion- Primary Unspecified disorder of skin and subcutaneous tissue [facility] [place] noteNo assessment information availableWK[facility] Work Phone: Evaluation note* Diagnosis Sore throat- Primary Acute pharyngitis Strep pharyngitis Streptococcal sore throat documented in this encounter [facility] note* Diagnosis Sore throat- Primary Acute pharyngitis documented in this encounter [facility] note* Diagnosis Influenza A- Primary Influenza with other respiratory manifestations Influenza-like illness Influenza with other respiratory manifestations documented in this encounter [facility] note* Diagnosis Sore throat- Primary Acute pharyngitis documented in this encounter [facility] Summary Purpose Family History No Family History Records FoundNo Family History Records FoundNo Family History Records Found Advance Directives No Advanced Directives Records Found Advance Directive Response Recorded Date/ Time Advance Directives No March 7:02pm Living Will No April 26, 2016 7:02pm Power of Plexiglas Former No March 7:02pm Advance Directive Response Recorded Date/ Time Advance Directives No March 6:02pm Living Will No April 26, 2016 6:02pm Power of Plexiglas Former No March 6:02pm Chief Complaint and Reason for Visit Chief Complaint XRAY-LABWORK ORDERS SCANNED Additional Source Comments (unrecognized sect ion and content) No Status Records FoundNo Status Records FoundNo Status Records Found INFORMATION SOURCE (unrecogn ized section and content) DATE CREATED AUTHOR 09/06/2019 [facility] DATE CREATED AUTHOR AUTHOR'S ORGANIZ ATION 06/23/2023 [facility] DATE CREATED AUTHOR AUTHOR'S ORGANIZ ATION 10/18/2024 [facility] Source Comments (unrecognize d section and content) In the event this informatio n is protected by the Federal Confidentiality of Alcohol and Drug Abuse Patient Records regulations: The Federal rules restrict any use of the information to criminally investigate or prosecute any alcohol or drug abuse patient.[facility] the event this information is protected by the Federal Confidentiality of Alcohol and Drug Abuse Patient Records regulations: The Federal rules restrict any use of the information to criminally investigate or prosecute any alcohol or drug abuse patient.[facility] the event this information is protected by the Federal Confidentiality of Alcohol and Drug Abuse Patient Records regulations: The Federal rules restrict any use of the information to criminally investigate or prosecute any alcohol or drug abuse patient.[facility] the event this information is protected by the Federal Confidentiality of Alcohol and Drug Abuse Patient Records regulations: The Federal rules restrict any use of the information to criminally investigate or prosecute any alcohol or drug abuse patient.[facility] the event this information is protected by the Federal Confidentiality of Alcohol and Drug Abuse Patient Records regulations: The Federal rules restrict any use of the information to criminally investigate or prosecute any alcohol or drug abuse patient.[facility] the event this information is protected by the Federal Confidentiality of Alcohol and Drug Abuse Patient Records regulations: The Federal rules restrict any use of the information to criminally investigate or prosecute any alcohol or drug abuse patient.[facility] the event this information is protected by the Federal Confidentiality of Alcohol and Drug Abuse Patient Records regulations: The Federal rules restrict any use of the information to criminally investigate or prosecute any alcohol or drug abuse patient.[facility] Reason for Visit (unrecogniz ed section and content) Reason Comments Sore Throat ST and HUDSON x 1 day Reason Comments Chest Congestion nasal congestion, dr juares and cough x 2 weeks increased x 3 days Reason Comments sore spot on left arm Gave blood 2/1-sit e is a little red and sore Reason Comments Sore Throat Bodyaches x3 days Reason Comments Sore Throat Headache x this am Reason Comments Cough Cough, HUDSON and bodyac hes x 1 day Reason Comments Nasal Congestion drainage, cough and sore throat x 2 days Care Teams (unrecognized sec tion and content) Dispensary Technician Relationship Specialty Start Date End Date Cristopher Larose, PIN TICKET MACHINE OPERATOR [address] [place] [address] PCP - General Family Practice 06/27/18 Dispensary Technician Relationship Specialty Start Date End Date Cristopher Larose, PIN TICKET MACHINE OPERATOR [address] [place] [address] PCP - General Family Medicine 06/27/18 Dispensary Technician Relationship Specialty Start Date End Date Cristopher Larose, SINDHU [address] [place] [address] PCP - General Family Medicine 06/27/18 Team Status: Active Member Role Status Dates Cristopher Larose Family Provider Active Cristopher Larose PRODUCTION HONING MACHINE OPERATOR, PRODUCTION HONING MACHINE OPERATOR-C Primary Care Provider Active Team Status: Inactive Member Role Status Dates Cristopher Larose PRODUCTION HONING MACHINE OPERATOR, PRODUCTION HONING MACHINE OPERATOR-C Primary Care Provider, Attending Provider, Referring Provider Active Dispensary Technician Relationship Specialty Start Date End Date Cristopher Larose, SINDHU [address] [place] [address] PCP - General Family Medicine 06/27/18 Dispensary Technician Relationship Specialty Start Date End Date Cristopher Larose CNP [address] [place] [address] PCP - General Family Medicine 06/27/18 Dispensary Technician Relationship Specialty Start Date End Date Cristopher Larose CNP [address] [place] [id number] PCP - General Family Medicine 06/27/18 Dispensary Technician Relationship Specialty Start Date End Date Cristopher Larose CNP [address] [place] [address] PCP - General Family Medicine 06/27/18 Goals (unrecognized section and content) Goals may be documented in a n alternate sectionGoals may be documented in an alternate section FOR RECORDS PERTAINING TO PATIENTS WHO ARE OR HAVE BEEN ENROLLED IN A CHEMICAL DEPENDENCY/SUBSTANCEABUSE PROGRAM, SOME INFORMATION MAY BE OMITTED. This clinical summary was aggregated from multiple sources. Caution should be exercised in using it in the provision of clinical care. This summary normalizes information from multiple sources, and as a consequence, information in this document may materially change the coding, format and clinical context of patient data. In addition, data may be omitted in some cases. CLINICAL DECISIONS SHOULD BE BASED ON THE PRIMARY CLINICAL RECORDS. [facility]. provides no warranty or guarantee of the accuracy or completeness of information in this document.
--- NOTE | 2025-03-08 13:15 | ED.RN ---
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 HE HEARD A POP AND HAD SEVERE BACK PAIN AFTER. PT DID WALK BACK FROM TRIAGE. PT DENIES ANY NUMBNESS OR TINGLING. STATES THAT PAIN IS MAINLY IN THE CENTER LOWER BACK BUT DOES RADIATE DOWN BLE, MOSTLY LEFT SIDE.
--- NOTE | 2025-03-08 13:46 | ED.VIS.BACK ---
HPI History of Present Illness Chief Complaint: Back Detail of Chief Complaint: Sudden onset of back pain Informant: patient Onset/Context/Timing Onset: Today Context: Sudden Onset Injury: bending Timing: Continuous Quality: Sharp Location: Lumbar and Left Leg Current Severity: Moderate Maximum Severity: Severe Worsened by: improves with Movement Relieved by: Remaining Still Associated Symptoms Associated Symptoms: Radiation to Left Leg; Negative for Numbness, Tingling, Radiation to Right Leg, Fever, Abdominal Pain, Dysuria, Unable to Ambulate, Unable to Transfer, Urinary Retention, Urinary Incontinence, Constipation or Fecal Incontinence Narrative Narrative: 39-year-old male no CeeNU past medical history. No prior back history of back surgery. Was making his bed today. He was bent over and stood up. Immediate pain in his back and he thought he heard a pop. He is pain over his lower back at home he thought he was having back spasms and was lying on the floor for some relief. At times he did pain go down his left leg. No prior history. No fall or trauma. No fever. No bowel or bladder incontinence or retention. No leg weakness or numbness. Prior similar symptoms: No Recent Illness/Hospitalization: No PFSH PFSH Medical History no medical history no medical history Home Medications ?Medication ?Instructions ?Recorded ?Last Taken ?Type ohse-yuc-jlfoq-kbqwzdble-frdejdxu-uouo-pectin 2,000 mg PO DAILY 04/20/16 03/08/25 History 1,000 mg tablet fexofenadine-pseudoephedrine ER 1 tab PO DAILY 03/08/25 Unknown History 180 mg-240 mg tablet,ext.release 24 hr (Maine-D 24 Hour) hydrocodone-acetaminophen 5-325mg 1 tab PO Q4H PRN PRN Pain 4 days 03/08/25 Unknown Rx 5mg-325mg #16 TABLETS metaxalone 800 mg tablet 800 mg PO TID 7 days #21 tabs 03/08/25 Unknown Rx prednisone 20 mg tablet 40 mg (2 x 20 mg) PO DAILY 10 days 03/08/25 Unknown Rx #20 tabs Allergy/AdvReac Type Severity Reaction Status Date / Time amoxicillin trihydrate (From Allergy Hives Verified 03/08/25 13:16 Augmentin) cefaclor (From Ceclor) Allergy Hives Verified 03/08/25 13:16 clarithromycin (From Biaxin) Allergy Hives Verified 03/08/25 13:16 Penicillins Allergy Hives Verified 03/08/25 13:16 potassium clavulanate (From Allergy Hives Verified 03/08/25 13:16 Augmentin) sulfamethoxazole (From Allergy Hives Verified 03/08/25 13:16 Septra) trimethoprim (From ) Allergy Hives Verified 03/08/25 13:16 Surgical History hx of leg surgery Social History Smoking Status: Never smoker ROS ROS ED ROS Narrative Denies recent illness. No recent back pain until today. Constitutional Constitutional ED: Denies chills or fever(s) Eyes Eyes: Denies blurry vision ENT ENT ED: Denies ear pain Cardiovascular Cardiovascular: Denies chest pain Respiratory/Chest Respiratory/Chest: Denies dyspnea Gastrointestinal Gastrointestinal: Denies abdominal pain Genitourinary Genitourinary ED: Denies dysuria or hematuria Musculoskeletal Musculoskeletal: Reports back pain; Denies arthralgias or neck pain Integumentary Denies abscess or Abrasions Neurologic Neurologic: Denies headache(s) Psychiatric Psychiatric: Denies anxiety or depression Endocrine Endocrinology: Denies cold intolerance Hematologic/Lymphatic Hematologic/Lymphatic: Denies easy bleeding, easy bruising or lymphadenopathy Allergic/Immunologic Allergic/Immunologic ED: Denies mouth swelling, tongue swelling or urticaria EXAM Physical Exam Narrative Exam Narrative: 39-year-old male sitting upright in bed. Family at bedside. Vital signs are stable afebrile. He is having back pain but there is severe distress unless he moves. H EENT exam pupils round reactive light. Moist mutes membranes. No trauma to his head. Neck nontender. Back he has no reproducible cervical, thoracic or lumbar spine pain. He has no muscular spasm or reproducible muscular or reproducible back pain at this time he has pain is worse with movement but is not reproducible. Lungs clear. Heart regular rate and rhythm no murmur. Chest wall ribs nontender. Abdomen soft nontender. No pulsatile mass. No peritoneal signs. Moving all 4 extremities. He has 5 out of 5 ship superintendent strength. He has normal dorsi plantarflexion. Normal medial thigh sensation. He has no cauda equina or saddle anesthesia. He does have a positive straight leg raise on the left. Neurologically is awake alert. Answering questions following commands. No focal motor or sensory deficits. No cauda equina or saddle anesthesia again. Const Vital Signs: 03/08/25 12:38 Temperature 98 F Temperature Source Oral Pulse Rate 72 Respiratory Rate 16 Blood Pressure 150/89 H Blood Pressure Mean 109 Pulse Ox 100 Oxygen Delivery Method Room Air Positive well nourished and well developed; Negative for obese, cachectic, contractures or unkempt General Appearance ED: well developed; Negative for unkempt, cachectic, contractures, NAD or pallor Nutritional Appearance: Negative for cachectic or obese HEENT Reports moist mucous membranes Negative for trauma or tenderness Eyes PERRL and EOMs intact bilaterally Neck no lymphadenopathy, supple and no JVD Resp normal respiratory effort and clear to auscultation bilaterally Cardio regular rate, regular rhythm, S1 normal heart sound, S2 normal heart sound and no murmurs GI normal to inspection, nondistended, normoactive bowel sounds, soft to palpation, non-tender, non-distended and no masses Palpation: Negative for tender, guarding, mass, pulsatile mass or rebound tenderness present Back/Spine normal to inspection and no thoracic nor lumbar tenderness General Back: Negative for CVA tenderness Cervical Spine: Negative for cervical spine tenderness Thoracic Spine / Upper Back: Negative for paraspinal muscle tenderness Lumbar Spine / Lower Back: straight leg raise positive - left; Negative for straight leg raise positive right Extremity normal to inspection and no clubbing, cyanosis or edema General Extremety ED: Negative for edema, tenderness or other findings General Extremity: Negative for edema or other findings Neuro oriented x3 and no sensory deficits noted Sensorium / Orientation: Negative for alert, confused, lethargic or stuporous Motor Exam: strength 5/5 throughout Psych mental status grossly normal Appearance: Negative for unkempt Skin no rashes or lesions noted and no wounds General Skin Exam: Negative for jaundice or pallor Lesions: No lesion noted Rashes: No rashes noted Trauma: Negative for abrasion or puncture Wounds: Negative for wounds noted MDM MDM MDM Narrative Medical decision making narrative: 39-year-old male bending over when he stood up he felt a pop and sudden back pain. He is a radiculopathy on the left. He has good strength and sensation of both lower extremities. He has no reproducible back pain at this time. He does have pain with movement. He was offered but did not want any IV or IM injections. He was given a hydrocodone for pain. A Skelaxin for muscle spasm and first dose of prednisone. I think he has a strain lower back and possibly an inflamed disc. He will be placed on his same medications at home prescriptions were sent. He does not need any acute MRI at this time he does not have cauda equina nor leg weakness or numbness. No incontinence. He will follow-up with his primary care physician later this week for further evaluation and workup he knows to return if he gets leg weakness, numbness bowel or bladder incontinence or retention. He is comfortable with the plan and again did not want any IM or IV injections. History & Record Review Discussion w/independent historian: Patient and Family Discharge Plan Triage Chief Complaint: Back ED Provider: Young Mishra Dx/Rx/DC Orders Clinical Impression: Back pain, Acute left lumbar radiculopathy Instructions: Understanding Lumbar Radiculopathy, ED Back Pain (Acute or Chronic) Prescriptions: New metaxalone 800 mg tablet 800 mg PO TID 7 Days Qty: 21 0RF prednisone 20 mg tablet 40 mg PO DAILY 10 Days Qty: 20 0RF hydrocodone-acetaminophen 5-325 mg tablet 1 tab PO Q4H PRN PRN (Reason: Pain) 4 Days Qty: 16 0RF No Action gxau-pfa-dqu-geb-umft-wdtz-pec 1,000 MG tablet 2,000 mg PO DAILY fexofenadine-pseudoephedrine [Maine-D 24 Hour] 180-240 mg tablet extended release 24 hr 1 tab PO DAILY Primary Care Provider: Cristopher Larose INCIDENT RESPONSE ANALYST Referrals: Cristopher Larose INCIDENT RESPONSE ANALYST, INCIDENT RESPONSE ANALYST-C [Primary Care Provider] - 3-5 Days Activity Restrictions/Additional Instructions: Strange or manic sounds like in whom you are having back spasms and I am concerned this could be an inflamed disc since you do not have reproducible pain at this time also with the pain going down your left leg. You will be started on prednisone 40 mg a day for 10 days. No need to taper. Hydrocodone simply a pain medication. Do not drink or drive while taking that. Skelaxin a muscle relaxant you will take 1 pill 3 times a day. Call and follow-up with your doctor. If not improving you may need an MRI. If you start having worsening pain or you get bowel or bladder incontinence or severe weakness to your legs you should return. Print Language: Greek Disposition Disposition: Home, Self Care
[2025-03-08] MEDS: HYDROcodone Bitartrate/Apap 5/325 Tablet PO (14:07)
[2025-03-08 14:12] VITALS: BP 139/85; PULSE 67; RESP 18; TEMP 36.6; O2SAT 98
== END 2025-03-08 14:13 | disposition home or self-care (01) ==
PROVIDERS: Emergency Provider Emergency Medicine; PCP Nurse Practitioner Family; Visit Provider Emergency Medicine
DX: M54.16 Radiculopathy, lumbar region (principal)
CPT/HCPCS: 99283